=== PATIENT | male | born 1945 | race Caucasian/White ===

== ENCOUNTER → 2018-01-22 | Outpatient (CLI) | payer MEDICARE ==
[2018-01-22 09:24] LABS: HGB 14.2 gm/dL (13.0-17.5); MCH 30.5 pg (25.0-35.0); MCHC 32.2 g/dL (31.0-37.0); MCV 94.6 fL (80.0-100.0); Mean Platelet Volume 6.7; Platelet Count 221 k/uL (150-450); RBC 4.65 m/uL (4.30-5.90); RDW 13.2 % (11.5-15.5); WBC 7.3 k/uL (3.8-10.6)
[2018-01-22 10:02] LABS: Anion Gap 6 mmol/L; Blood Urea Nitrogen 14 mg/dL (9-20); Carbon Dioxide 26 mmol/L (22-30); Chloride 107 mmol/L (98-107); Potassium 4.4 mmol/L (3.5-5.1); Sodium 139 mmol/L (137-145)
== END | disposition home or self-care (01) ==
LOC: LABPAT 08:42
PROVIDERS: ATTEND Internal Medicine Cardiovascular Disease
DX: Z01.812 Encounter for preprocedural laboratory examination (principal); I35.0 Nonrheumatic aortic (valve) stenosis; I35.1 Nonrheumatic aortic (valve) insufficiency; I10 Essential (primary) hypertension
CPT/HCPCS: 36415; 80051; 82565; 84520; 85027

== ENCOUNTER 2018-01-29 06:10 | Day surgery (SDC) | payer MEDICARE ==
[2018-01-25 15:52] VITALS: BMI 25.8
[2018-01-29] MEDS ORDERED: ALPRAZolam 0.25 MG TAB PO PRN (06:19)
[2018-01-29] MEDS ORDERED: NITROGLYCERIN SL TABS 0.4 MG TAB SUBLINGUAL PRN (06:19)
[2018-01-29] MEDS ORDERED: ATORVASTATIN 80 MG TAB PO STA (06:19)
[2018-01-29] MEDS ORDERED: ASPIRIN 325 MG TAB PO STA (06:19)
[2018-01-29] MEDS ORDERED: ALPRAZolam 0.5 MG TAB PO PRN (06:19)
[2018-01-29] MEDS ORDERED: SODIUM CHLORIDE 0.9% 1,000 ML in EMPTY BAG 1 BAG IV ONE (06:19)
[2018-01-29] MEDS ORDERED: fentaNYL (PF) 50 MCG/ML 2 ML AMP ONE (07:15)
[2018-01-29] MEDS ORDERED: MIDAZOLAM 2 MG/2 ML VIAL ONE (07:16)
[2018-01-29] MEDS ORDERED: LIDOCAINE 1% INJ 10MG/ML (20 ML MDV) ONE ×2 (07:22→08:20)
[2018-01-29] MEDS ORDERED: SODIUM CHLORIDE 0.9% 1,000 ML IV ONE (07:25)
[2018-01-29 07:32] VITALS: TEMP 98.1
[2018-01-29] MEDS ORDERED: BENZOCAINE SPRAY 1 CAN MUCOUS MEM ONE (07:33)
[2018-01-29] MEDS ORDERED: MIDAZOLAM 2 MG/2 ML VIAL IVP ONE ×2 (07:44→07:45)
[2018-01-29] MEDS ORDERED: fentaNYL (PF) 50 MCG/ML 2 ML AMP IVP ONE (07:44)
[2018-01-29 07:58] VITALS: PULSE 56
--- NOTE | 2018-01-29 08:06 | P.PCN ---
Date of Procedure: 01/29/18 Preoperative Diagnosis: Severe aortic stenosis Postoperative Diagnosis: Moderate to severe aortic stenosis and moderate aortic regurgitation Procedure(s) Performed: ESTELLA Description of Procedure: INDICATION: Procedure is being done to assess the severity of aortic stenosis CONSENT:. Informed consent was obtained from the patient and family PROCEDURE:. Patient was brought to the lab in a fasting state. He was prepped and draped in the usual fashion. The throat was sprayed with Cetacaine. He'll lubricated Omni probe was introduced into the oropharynx and advanced into the esophagus and also stomach. Multiple views were obtained. Patient tolerated the procedure well. Color, pulsed wave and Continuous Doppler were performed FINDINGS:. The aortic valve is heavily calcified with restricted opening excursion. By planimetry valve area about 1.2 cm was obtained. There is also moderate aortic regurgitation which is eccentric. There is mild mitral regurgitation. Left ventricle size is normal with preserved LV function. Left atrial appendage is free of any clot. The interatrial septum is intact without any shunt. There is prominent distraction valve. Contrast saline bubble injection did not reveal any crossing of bubbles across the interatrial septum. There is moderate plaque in the aorta. A peak gradient of 60 with a mean of 37 was obtained from IMPRESSION: #1. Moderate to severe aortic stenosis. #2. Moderate aortic regurgitation which is eccentric #3. No PFO #4. No clot in the left atrial appendage PLAN: Proceed with a right and left heart catheterization
[2018-01-29] MEDS ORDERED: LIDOCAINE 1% INJ 10MG/ML (20 ML MDV) SQ ONE ×2 (08:17)
[2018-01-29 08:36] LABS: O2 Sat Blood Gas 67.2 %
[2018-01-29 08:38] LABS: O2 Sat Blood Gas 67.9 %
[2018-01-29 08:40] LABS: O2 Sat Blood Gas 95.5 %
[2018-01-29] MEDS ORDERED: IV FLUID CONTINUATION 1,000 ML IV ONE (08:59)
[2018-01-29] MEDS ORDERED: IOPAMIDOL-370 125ML BTL INJ ONE (09:04)
[2018-01-29] MEDS ORDERED: RX INFO: IV CONTRAST WAS GIVEN 1 EACH MISC MISCELLANE PRN (09:14)
[2018-01-29] MEDS ORDERED: SODIUM CHLORIDE 0.9% 1,000 ML IV SCH (09:15)
--- NOTE | 2018-01-29 13:24 | P.CARDCATH ---
Date of Procedure: 01/29/18 Preoperative Diagnosis: Severe aortic stenosis Postoperative Diagnosis: Aortic stenosis, diffuse coronary artery disease and normal pulmonic hemodynamics. Procedure(s) Performed: Left heart catheterization and also right heart catheterization without left ventriculography Description of Procedure: HISTORY: This is a 73-year-old gentleman with history of hypertension was found to have evidence of severe aortic stenosis by echocardiogram moderate aortic regurgitation. Patient is advised to have a cardiac catheterization for definitive diagnosis. A ESTELLA examination is consistent with moderate to severe aortic stenosis and moderate aortic regurgitation. CONSENT:I have discussed the risks, benefits and alternative therapies for the above-mentioned procedure and for both sedation/analgesia as well as necessary blood product administration, if indicated, as they pertain to this patient. The patient has indicated understanding and acceptance of the risks and procedures discussed. PROCEDURE: RIGHT HEART CATHETERIZATION: Right heart catheterization performed from right groin area. The right groin is infiltrated with lidocaine. Right femoral vein was entered using Seldinger technique. Using a Fleischmanns-Mae catheter, right heart catheterization performed. Patient tolerated the procedure well. Manual compression was applied at the end of the procedure for hemostasis. LEFT HEART CATHETERIZATION: Left heart catheterization was performed on the right groin. Patient was brought to the lab in a fasting state. Patient was given some IV sedation. The right groin is infiltrated with lidocaine and right femoral artery was entered using Seldinger technique. A 6-Citizen Of [place] catheter was left in place and selective coronary arteriography and left ventriculography was performed. Patient tolerated the procedure well. Manual compression was applied for hemostasis. No immediate complications were noted and patient was transferred to [facility] in a stable condition Conscious Sedation: No additional sedation was given during the procedure. Patient received Versed and fentanyl for ESTELLA earlier. Fentanyl [] g Duration 47minutes HEMODYNAMICS: Right atrial pressure is 3-4. The right ventricular pressure is 19 /3-4. Pulmonary artery pressure is 20/4/11 and pulmonary wedge pressure is 9 /8/5. The aortic pressure is 120/60. The aortic valve could not be crossed. The cardiac output by thermodilution method is 4.9 with index of 2.46. The by Juan method. It is 4.62 with index of 2.31. SELECTIVE CORONARY ARTERIOGRAPHY: LEFT MAIN: Is normal length with mild distal disease. THE LEFT ANTERIOR DESCENDING CORONARY ARTERY: This is a moderate caliber vessel with diffuse disease in the midportion with areas of 50-60% followed by an area of 70% stenosis. It gives rise to small diagonal and septal branches. THE LEFT CIRCUMFLEX AND IS CORONARY ARTERY: This is a codominant vessel giving rise to good-sized OM branch. There is also mild diffuse disease involving the proximal and mid portions with about 40-50% stenosis of the OM branch. THE RIGHT CORONARY ARTERY: This is a codominant vessel and moderate in caliber with diffuse disease. The PLV branch has about 70-80% stenosis. LEFT VENTRICULOGRAPHY: Not performed FINAL IMPRESSION: #1. Moderate aortic stenosis based on the ETSELLA examination. # 2. Moderate aortic regurgitation #3. Diffuse coronary artery disease with intermittent lesions in the OM branch and significant disease involving the mid LAD and also PLV branch of the right coronary artery. PLAN: Maximum medical therapy with risk factor modification. Symptomatic follow -up. Patient may need aortic valve replacement and revascularization. He patient becomes symptomatically. PROGNOSIS: Guarded
[2018-01-29 18:51] VITALS: RESP 20
[2018-01-29 18:53] VITALS: BP 114/60
== END 2018-01-29 17:10 | disposition home or self-care (01) ==
LOC: CATHCVL 06:10
PROVIDERS: ATTEND Internal Medicine Cardiovascular Disease
DX: I08.0 Rheumatic disorders of both mitral and aortic valves (principal); I25.10 Atherosclerotic heart disease of native coronary artery without angina pectoris; I10 Essential (primary) hypertension; F17.210 Nicotine dependence, cigarettes, uncomplicated; Z79.899 Other long term (current) drug therapy; Z88.5 Allergy status to narcotic agent
CPT/HCPCS: 93312; 93320; 93325; 93456; 85018; 82810; C1769 ×3; C1894 ×2; J2250; J2001; J3010; Q9967

== ENCOUNTER 2019-05-11 06:52 | Day surgery (SDC) | payer MEDICARE ==
[2019-05-09 12:17] VITALS: BMI 25.1
[2019-05-11 07:34] VITALS: TEMP 97.8
[2019-05-11] MEDS ORDERED: SODIUM CHLORIDE 0.9% 500 ML 500 ML IV ONE (07:35)
[2019-05-11] MEDS ORDERED: fentaNYL (PF) 50 MCG/ML 2 ML AMP ONE (07:47)
[2019-05-11] MEDS ORDERED: BENZOCAINE SPRAY 1 CAN MUCOUS MEM ONE ×2 (08:10→08:15)
[2019-05-11] MEDS ORDERED: MIDAZOLAM 2 MG/2 ML VIAL IVP ONE (08:20)
[2019-05-11] MEDS ORDERED: fentaNYL (PF) 50 MCG/ML 2 ML AMP IVP ONE (08:26)
[2019-05-11 08:32] VITALS: RESP 16
[2019-05-11] MEDS ORDERED: SODIUM CHLORIDE 0.9% 1,000 ML IV SCH (08:45)
--- NOTE | 2019-05-11 08:52 | P.TEE ---
Indications for Procedure(s): Severe stenosis by echo Date of Procedure: 05/11/19 Preoperative Diagnosis: Severe aortic stenosis and moderate to severe aortic regurgitation Postoperative Diagnosis: Mild to moderate aortic stenosis and moderate to severe aortic regurgitation Procedure(s) Performed: ESTELLA Description of Procedure(s): INDICATION: This is a 74-year-old gentleman with history of aortic stenosis and regurgitation. On recent transthoracic echocardiogram there is increasing gradient across the aortic valve. Patient is advised to have ESTELLA examination for further evaluation CONSENT:. Informed verbal consent was obtained from the patient and family PROCEDURE:. Patient was brought to the lab in a fasting state. He was prepped and draped in the usual fashion. The throat was sprayed with Cetacaine. Patient was given IV Versed 0.5 mg 2 and fentanyl 25 mg for sedation. A lubricated Omni probe was introduced into the oropharynx and was advanced into the esophagus. Multiple views were obtained both from esophagus and stomach. Color ulcer and continuous-wave Doppler studies were performed. Saline contrast bubble injections also performed. Patient tolerated the procedure well FINDINGS:. The aortic valve is calcified and tricuspid. It appears it. There is some restriction of the wall opening discussion by planimetry valve area of about 1.8 was obtained size to of mild aortic stenosis. There is eccentric moderately severe aortic regurgitation. There is mild mitral regurgitation. The left atrial appendage is free of any clot. The interatrial septum is intact. Left ventricular function is normal. A peak gradient of about 67 with a mean of 42 was obtained across the aortic valve. There is mild plaque in the aorta IMPRESSION: #1. By planimetry valve stenosis appears to be at most mild to moderate. The pressure gradient is high but it could be falsely high because of concomitant aortic regurgitation. #2. Mild mitral regurgitation. #3. No clot in the left atrial appendage. #4. Left ventricle function is preserved. #5. There is no PFO #6. Mild plaque in the aorta PLAN:. Continuation of maximal medical therapy. Follow up with serial echoes.
--- NOTE | 2019-05-11 10:45 | XR ---
Right elbow HISTORY: Trauma and pain 3 views of the right elbow Bone mineralization, joint spaces and alignment are maintained. There is a crescentic calcification p resent within the soft tissues posterior to the distal right humerus is well-corticated. Soft tissue swelling is noted the level of the olecranon, there is a small punctate metallic density within the s oft tissues. No definite joint effusion. IMPRESSION: No acute fracture or dislocation. Soft tissue swelling, correlate for possible foreign olivia dy. Indeterminate calcification posterior aspect of the distal right upper extremity may be chronic. Correlate to exclude triceps dysfunction, possible avulsion injury
[2019-05-11 11:56] VITALS: BP 117/56; PULSE 58
== END 2019-05-11 10:05 | disposition home or self-care (01) ==
LOC: CATHCVL 06:52
PROVIDERS: ATTEND Internal Medicine Cardiovascular Disease
DX: I08.0 Rheumatic disorders of both mitral and aortic valves (principal); I10 Essential (primary) hypertension; Z72.0 Tobacco use; Z79.899 Other long term (current) drug therapy; Z88.5 Allergy status to narcotic agent
CPT/HCPCS: 93312; 93320; 93325; 73080; J2250; J3010

== ENCOUNTER 2020-11-27 08:54 | Day surgery (SDC) | payer MEDICARE ==
[2020-11-22 12:03] VITALS: BMI 26.4
[~2020-11-27 08:54] MED LIST: ALPRAZolam 0.25 MG TAB PO PRN; ALPRAZolam 0.5 MG TAB PO PRN; ASPIRIN 325 MG TAB PO STA; HEPARIN SODIUM,PORCINE 10,000 UNIT in SODIUM CHLORIDE 0.9% 1,000 ML IRRIGATION PRN; HEPARIN SODIUM,PORCINE 2,500 UNIT in SODIUM CHLORIDE 0.9% 250 ML IRRIGATION PRN; NITROGLYCERIN SL TABS 0.4 MG TAB SUBLINGUAL PRN; SODIUM CHLORIDE 0.9% 1,000 ML in EMPTY BAG 1 BAG IV ONE
[2020-11-27 09:31] LABS: Basophils % (A) 0 %; Eosinophils # (A) 0.2 k/uL (0-0.7); Eosinophils % (A) 2 %; HGB 14.7 gm/dL (13.0-17.5); Lymphocytes # (A) 1.3 k/uL (1.0-4.8); Lymphocytes % (A) 17 %; MCH 31.4 pg (25.0-35.0); MCHC 33.5 g/dL (31.0-37.0); MCV 93.9 fL (80.0-100.0); Mean Platelet Volume 7.1; Monocytes # (A) 0.6 k/uL (0-1.0); Monocytes % (A) 7 %; Neutrophils # (A) 5.5 k/uL (1.3-7.7); Neutrophils % (A) 72 %; Platelet Count 220 k/uL (150-450); RBC 4.68 m/uL (4.30-5.90); RDW 13.1 % (11.5-15.5); WBC 7.6 k/uL (3.8-10.6)
[2020-11-27 09:42] LABS: African American GFR (CKD) >90 (>60 ml/min/1.73 sqM); Anion Gap 7 mmol/L; Blood Urea Nitrogen 15 mg/dL (9-20); Calcium 9.3 mg/dL (8.4-10.2); Carbon Dioxide 26 mmol/L (22-30); Chloride 105 mmol/L (98-107); Glucose 100 mg/dL (74-99); Non-African American GFR(CKD) 81 (>60 ml/min/1.73 sqM); Potassium 4.5 mmol/L (3.5-5.1); Sodium 138 mmol/L (137-145)
[2020-11-27] MEDS ORDERED: fentaNYL (PF) 50 MCG/ML 2 ML AMP ONE (11:04)
[2020-11-27] MEDS ORDERED: IV FLUID CONTINUATION 1,000 ML IV ONE (11:10)
[2020-11-27] MEDS ORDERED: MIDAZOLAM 2 MG/2 ML VIAL IV ONE (11:30)
[2020-11-27] MEDS ORDERED: BENZOCAINE SPRAY 1 CAN MUCOUS MEM ONE (11:30)
[2020-11-27] MEDS ORDERED: fentaNYL (PF) 50 MCG/ML 2 ML AMP IV ONE (11:30)
[2020-11-27] MEDS ORDERED: LIDOCAINE 1% INJ 10MG/ML (20 ML MDV) SQ ONE (12:19)
[2020-11-27] MEDS ORDERED: IOPAMIDOL-370 125ML BTL INJ ONE ×2 (12:50)
[2020-11-27 12:51] LABS: O2 Sat Blood Gas 97.2 %
[2020-11-27 12:53] LABS: O2 Sat Blood Gas 70.9 %
[2020-11-27 12:55] LABS: O2 Sat Blood Gas 70.3 %
[2020-11-27] MEDS ORDERED: RX INFO: IV CONTRAST WAS GIVEN 1 EACH MISC MISCELLANE PRN (13:12)
[2020-11-27] MEDS ORDERED: SODIUM CHLORIDE 0.9% 1,000 ML IV SCH (13:15)
[2020-11-27 16:02] VITALS: RESP 18
[2020-11-27 18:28] VITALS: BP 131/70; PULSE 78; TEMP 97.9
--- NOTE | 2020-11-29 07:59 | P.TEE ---
Indications for Procedure(s): Assessment of aortic stenosis and regurgitation Date of Procedure: 11/29/20 Preoperative Diagnosis: Severe aortic stenosis and regurgitation Postoperative Diagnosis: Severe aortic stenosis and moderate to severe aortic regurgitation Procedure(s) Performed: ESTELLA Description of Procedure(s): INDICATION: This is a 75-year-old gentleman with history of aortic stenosis and regurgitation. Recent transthoracic echocardiogram showed progression of the stenosis. He is advised to have a ESTELLA examination for further evaluation CONSENT:. Informed verbal consent was obtained from the patient PROCEDURE: Patient was brought to the lab in a fasting state. He was prepped and draped in the usual fashion. This throat was sprayed with Cetacaine. Patient was given 2 mg Versed and 50 g of fentanyl for sedation. A lubricated Omni probe was introduced into the oropharynx and was advanced into the esophagus. Multiple views were obtained both from esophagus and stomach. Saline contrast probably injections also performed. Patient tolerated the procedure well FINDINGS:. The aortic valve showed extensive calcification with restricted opening excursion. Difficult to planimetry the area. By planimetry the opening area appears to be 0.6 2.7 cm. There is a moderate to severe eccentric aortic regurgitation. The mitral valve functioning normally with mild central regurgitation. The left atrial appendage is free of any clot. The interatrial septum appeared to be intact the restaurant. Left ventricle function appear to be preserved. There is left atrial enlargement by echo showed moderate to severe plaque. A peak gradient of 95 with a mean of 54 was obtained across the aortic valve again consistent with severe aortic stenosis IMPRESSION: #1. Severe aortic stenosis. 2. Moderate to severe eccentric aortic regurgitation #3. Mild mitral regurgitation. #4. Biatrial enlargement. #5. Preserved LV function. #6. No PFO #7. No clot in the left atrial appendage. #5. Moderate to severe plaque in the aorta PLAN: Proceed with cardiac catheterization. Consider aortic valve replacement
--- NOTE | 2020-11-29 08:05 | P.CARDCATH ---
Date of Procedure: 11/27/20 Preoperative Diagnosis: Severe aortic stenosis and regurgitation. Rule out coronary artery disease Postoperative Diagnosis: Diffuse coronary artery disease, multivessel Procedure(s) Performed: Left heart catheterization without left ventriculography Description of Procedure: HISTORY: This is a 75-year-old gentleman with history of severe aortic stenosis and regurgitation being evaluated to rule out any concomitant ischemic heart disease. CONSENT:I have discussed the risks, benefits and alternative therapies for the above-mentioned procedure and for both sedation/analgesia as well as necessary blood product administration, if indicated, as they pertain to this patient. The patient has indicated understanding and acceptance of the risks and procedures discussed. PROCEDURE: Patient was brought to the lab in a fasting state. Patient was given some IV sedation. The right groin is infiltrated with lidocaine and right femoral artery was entered using Seldinger technique. Because of calcification and excessive scar tissue, multiple dilators were used before advancing the catheter A 6-[place] catheter was left in place and selective coronary arteriography was performed. Aortic root injection wasn't attempted, but because of technical difficulties could not be completed. Patient tolerated the procedure well. Manual compression was applied for hemostasis. No immediate complications were noted and patient was transferred to [facility] in a stable condition Conscious Sedation: Versed 0mg Fentanyl 0 g Duration 40 minutes HEMODYNAMICS: The aortic pressure was about 130/70. Left ventricle end- diastolic pressure was not pressure SELECTIVE CORONARY ARTERIOGRAPHY: LEFT MAIN: Normal length and free of any occlusive disease THE LEFT ANTERIOR DESCENDING CORONARY ARTERY:. This is a moderate caliber vessel giving rise to several diagonal branches and septal branch. There is calcification and a diffuse plaque involving the LAD without any significant obstructive disease. There is about 60-70%. He'll stenosis involving the mid LAD THE LEFT CIRCUMFLEX AND IS CORONARY ARTERY:. This is a good caliber vessel, again showing about 60% stenosis in the proximal portion. Use ice to good-sized OM branch and PLV branch THE RIGHT CORONARY ARTERY:. This is a good caliber vessel and dominant with a diffuse plaque. There is about 60% stenosis in the distal portion and about 70-80% stenosis involving the PLV branch LEFT VENTRICULOGRAPHY: Not performed FINAL IMPRESSION:. Diffuse coronary artery disease with moderate disease involving the mid LAD and also proximal circumflex, moderate disease involving the distal RCA with critical lesion involving the PLV branch. Severe aortic stenosis by ESTELLA examination PLAN:. Aortic valve replacement. Maximum medical therapy for coronary artery disease PROGNOSIS: Guarded
== END 2020-11-27 21:20 | disposition home or self-care (01) ==
LOC: CATHCVL 08:54 → 6NMEDSUR 14:57 → CATHCVL 21:20
PROVIDERS: ATTEND Internal Medicine Cardiovascular Disease
DX: I35.0 Nonrheumatic aortic (valve) stenosis (principal); I25.10 Atherosclerotic heart disease of native coronary artery without angina pectoris; I25.84 Coronary atherosclerosis due to calcified coronary lesion; Z20.822 Contact with and (suspected) exposure to COVID-19; I10 Essential (primary) hypertension; F17.210 Nicotine dependence, cigarettes, uncomplicated; Z79.899 Other long term (current) drug therapy
CPT/HCPCS: 93312; 93320; 93325; 93454; 80048; 85018; 82810; 85025; 87635; C1894 ×2; C1769 ×2; J2250; J2001; J3010; Q9967; 93456

== ENCOUNTER → 2020-12-20 | Outpatient (CLI) | payer MEDICARE ==
[2020-12-20 08:38] LABS: Basophils % (A) 0 %; Eosinophils # (A) 0.2 k/uL (0-0.7); Eosinophils % (A) 3 %; HCT 41.9 % (39.0-53.0); Lymphocytes # (A) 1.2 k/uL (1.0-4.8); Lymphocytes % (A) 19 %; MCH 31.9 pg (25.0-35.0); MCHC 33.4 g/dL (31.0-37.0); MCV 95.5 fL (80.0-100.0); Mean Platelet Volume 7.1; Monocytes # (A) 0.4 k/uL (0-1.0); Monocytes % (A) 7 %; Neutrophils # (A) 4.7 k/uL (1.3-7.7); Neutrophils % (A) 71 %; Platelet Count 209 k/uL (150-450); RBC 4.39 m/uL (4.30-5.90); RDW 13.2 % (11.5-15.5); WBC 6.7 k/uL (3.8-10.6)
[2020-12-20 08:51] LABS: ALT 11 U/L (4-49); AST 22 U/L (17-59); African American GFR (CKD) >90 (>60 ml/min/1.73 sqM); Albumin 3.9 g/dL (3.5-5.0); Alkaline Phosphatase 69 U/L (38-126); Anion Gap 5 mmol/L; Bilirubin,Unconjugated 1.2 mg/dL (0.0-1.1); Blood Urea Nitrogen 13 mg/dL (9-20); Calcium 9.2 mg/dL (8.4-10.2); Carbon Dioxide 30 mmol/L (22-30); Chloride 103 mmol/L (98-107); Glucose 100 mg/dL (74-99); Non-African American GFR(CKD) 82 (>60 ml/min/1.73 sqM); Potassium 4.8 mmol/L (3.5-5.1); Sodium 138 mmol/L (137-145); Total Bilirubin 1.1 mg/dL (0.2-1.3); Total Protein 6.6 g/dL (6.3-8.2)
[2020-12-20 09:06] LABS: Appearance,Urine Clear (Clear); Bilirubin,Urine Negative (Negative); Blood,Urine Negative (Negative); Color,Urine Light Yellow; Glucose,Urine (UA) Negative (Negative); Ketones,Urine Negative (Negative); Leukocyte Esterase,Urine Negative (Negative); Nitrite,Urine Negative (Negative); Protein,Urine Negative (Negative); Specific Gravity,Urine 1.009 (1.001-1.035); Urobilinogen,Urine <2.0 mg/dL (<2.0)
[2020-12-20 09:07] LABS: Partial Thromboplastin Time 24.3 sec (22.0-30.0); Prothrombin Time 10.4 sec (9.0-12.0)
[2020-12-20 09:54] LABS: Magnesium 2.2 mg/dL (1.6-2.3)
[2020-12-20 17:14] LABS: Chol/HDL Ratio 3.62; Cholesterol 163 mg/dL (0-200); LDL Cholesterol,Calculated 106.4 mg/dL (0.0-131.0)
== END | disposition home or self-care (01) ==
LOC: LABWHC1 07:32
PROVIDERS: ATTEND Thoracic Surgery (Cardiothoracic Vascular Surgery)
DX: Z01.812 Encounter for preprocedural laboratory examination (principal); E87.8 Other disorders of electrolyte and fluid balance, not elsewhere classified; R58 Hemorrhage, not elsewhere classified; E07.9 Disorder of thyroid, unspecified; R35.0 Frequency of micturition; I35.0 Nonrheumatic aortic (valve) stenosis; E11.9 Type 2 diabetes mellitus without complications; N28.9 Disorder of kidney and ureter, unspecified; D75.9 Disease of blood and blood-forming organs, unspecified; E78.5 Hyperlipidemia, unspecified; Z79.899 Other long term (current) drug therapy
CPT/HCPCS: 36415; 80053; 80061; 81003; 82248; 83036; 83735; 83880; 84443; 85025; 85610; 85730; 87086

== ENCOUNTER → 2020-12-27 | Outpatient (CLI) | payer MEDICARE ==
--- NOTE | 2020-12-27 13:08 | US ---
EXAMINATION TYPE: US carotid duplex BILAT DATE OF EXAM: 12/27/2020 COMPARISON: NONE CLINICAL HISTORY: R55 SYNCOPE. Syncope EXAM MEASUREMENTS: RIGHT: Peak Systolic Velocity (PSV) cm/sec ----- Right CCA: 64.8 ----- Right ICA: 67.7 ----- Right ECA: 86.6 ICA/CCA ratio: 1.0 RIGHT: End Diastole cm/sec ----- Right CCA: 0 ----- Right ICA: 14.0 ----- Right ECA: 0 LEFT: Peak Systolic Velocity (PSV) cm/sec ----- Left CCA: 75.0 ----- Left ICA: 93.9 ----- Left ECA: 60 ICA/CCA ratio: 1.3 LEFT: End Diastole cm/sec ----- Left CCA: 0 ----- Left ICA: 27 ----- Left ECA: 0 VERTEBRALS (direction of flow): Right Vertebral: Antegrade Left Vertebral: Antegrade Rhythm: Arrhythmia Mild bilateral atherosclerotic plaque/intimal thickening at the common carotid artery bifurcations. IMPRESSION: 1. No hemodynamically significant stenosis of the bilateral internal carotid arteries. Less than 50% stenosis bilaterally. 2. Mild bilateral atherosclerotic plaque/intimal thickening at the common carotid artery bifurcations . Criteria for Assigning % of Stenosis / Diameter reduction (Estimation based on the indirect measurements of the internal carotid artery velocities (ICA PSV). 1. Normal (no stenosis)=ICA PSV < 125 cm/s: ratio < 2.0: ICA EDV<40 cm/s. 2. Less than 50% stenosis=ICA PSV < 125 cm/s: ratio < 2.0: ICA EDV<40 cm/s. 3. 50 to 69% stenosis=ICA PSV of 125 to 230 cm/s: ration 2.0 ? 4.0: ICA EDV 40-100 cm/s. 4. Greater than 70% stenosis to near occlusion= ICA PSV > 230 cm/s: ratio > 4.0: ICA EDV > 100 cm/s. 5. Near occlusion= ICA PSV velocities may be low or undetectable: variable ratio and ICA EDV. 6. Total occlusion=unable to detect flow.
--- NOTE | 2020-12-27 20:16 | CT ---
EXAMINATION TYPE: CT TAVR Planning DATE OF EXAM: 12/27/2020 HISTORY: 75-year-old male I 3 5.[address] DLP: 1948.6 mGycm Automated Exposure Control for Dose Reduction was Utilized. CONTRAST: CT scan of the chest, abdomen and pelvis is performed with IV Contrast, patient injected with 125 mL of Isovue 370. COMPARISON: None TECHNIQUE: Helical imaging obtained through the chest, abdomen and pelvis during arterial phase chad adrien administration of radiographic contrast intravenously. FINDINGS: See report from [employer] regarding preprocedural planning CHEST: Lower Neck and Thyroid: No significant findings Lungs: Minimal upper lung emphysematous change. Mild diffuse bronchial wall thickening. Benign 7 mm c alcified granuloma peripheral left base. Central Airway: No significant findings Pleura: No significant findings Pulmonary Arteries: Mildly enlarged caliber measuring up to 2.7 cm may reflect underlying pulmonary a rterial hypertension. Heart and Pericardium: No significant findings Aorta: Bovine configuration. Lymph Nodes: Some small calcified subcarinal left hilar lymph nodes suggest prior granulomatous disea se. Mediastinum & Esophagus: Moderate-sized hiatal hernia in the lower chest. ABDOMEN/PELVIS: Please note arterial phase of the imaging limits detailed evaluation of the solid abdominal organs. Liver: 2.0 cm left hepatic dome cyst. Spleen: Small calcified granulomas. Kidneys: No significant findings Adrenal Glands: Mild diffuse low-density thickening left adrenal gland without discrete nodularity. Pancreas: No significant findings Gallbladder: A couple faceted gallstones measuring up to 1.1 cm noted. Bowel and Mesentery: Left-sided clonic diverticulosis. No evidence for acute diverticulitis. Lymph Nodes: No significant findings Urinary Bladder: Circumferential wall thickening. 5.6 cm narrow neck diverticulum from the right para median posterior wall. Posterior dome trabeculations and smaller 1.4 cm diverticulum. Pelvic Organs: Prostate gland is enlarged measuring up to 6.5 cm AP and 5.2 cm wide. Other: Mild to moderate atherosclerotic calcification and plaque in the abdominal aorta. 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 Tortuous common and external iliac arteries. Other Lines/Tubes/Devices/Hardware: None Bones: Mild degenerative change at the hips. Degenerative change at the bilateral SI joints. Loss of the subacromial space on both sides suggesting chronic full-thickness rotator cuff tears. Secondary r otator cuff arthropathy. Moderate degenerative disc disease mid to lower thoracic spine and lumbar sp ine. Hypertrophic facet arthropathy mid to lower lumbar spine. IMPRESSION: 1. Tortuous common and external iliac arteries incidentally noted. 2. Prostatomegaly at 6.5 cm. Trabeculated and mildly thickened bladder wall suggests BPH and chronic bladder outlet obstruction. Of note, there is a large 5.6 cm narrowneck diverticulum from the posteri or bladder wall. 3. Incidental: Pulmonary arterial hypertension, minimal emphysema, evidence of prior granulomatous di sease, moderate sized hiatal hernia, cholelithiasis, and left-sided colonic diverticulosis.
== END | disposition home or self-care (01) ==
LOC: LABWHC1 09:34
PROVIDERS: ATTEND Thoracic Surgery (Cardiothoracic Vascular Surgery)
DX: Z01.812 Encounter for preprocedural laboratory examination (principal); I49.9 Cardiac arrhythmia, unspecified; I65.23 Occlusion and stenosis of bilateral carotid arteries; N40.0 Benign prostatic hyperplasia without lower urinary tract symptoms; I35.1 Nonrheumatic aortic (valve) insufficiency; R94.31 Abnormal electrocardiogram [ECG] [EKG]; R55 Syncope and collapse
CPT/HCPCS: 94150; 93880; 71275; 74174; 93005; 36415; Q9967

== ENCOUNTER 2021-01-09 07:07 | Inpatient (IN) | payer MEDICARE ==
[~2021-01-09 07:07] MED LIST changes: -ALPRAZolam 0.25 MG TAB PO PRN; -ALPRAZolam 0.5 MG TAB PO PRN; +ASPIRIN 325 MG TAB PO ONE; -ASPIRIN 325 MG TAB PO STA; +ATORVASTATIN 10 MG TAB PO ONE; +CARDIOPLEGIC SOLN (K+ 16 MEQ/L 1,000 ML with SODIUM BICARB (1 MEQ/ML) 20 ML, LIDOCAINE ... PERFUSION PRN; +CLEVIDIPINE BUTYRATE 25 MG in EMPTY BAG 1 BAG IV PRN; +CLOPIDOGREL 75 MG TAB PO ONE; -HEPARIN SODIUM,PORCINE 10,000 UNIT in SODIUM CHLORIDE 0.9% 1,000 ML IRRIGATION PRN; -HEPARIN SODIUM,PORCINE 2,500 UNIT in SODIUM CHLORIDE 0.9% 250 ML IRRIGATION PRN; +INSULIN REGULAR 100 UNIT in SODIUM CHLORIDE 0.9% 100 ML IV PRN; +METOPROLOL TARTRATE 25 MG TAB PO ONE; +MUPIROCIN 2% OINT 22 GM TUBE NASAL SCH; -NITROGLYCERIN SL TABS 0.4 MG TAB SUBLINGUAL PRN; +NITROGLYCERIN-D5W PMX 25 MG/250 ML BTL IV PRN; +PROTAMINE SULFATE 250 MG in EMPTY BAG 1 BAG IV PRN; -SODIUM CHLORIDE 0.9% 1,000 ML in EMPTY BAG 1 BAG IV ONE; +SODIUM CHLORIDE 0.9% 500 ML 500 ML INTRAARTER ONE; +SODIUM CHLORIDE 0.9% 500 ML 500 ML IV ONE; +TRANEXAMIC ACID 2,000 MG in SODIUM CHLORIDE 0.9% 80 ML IV PRN
[2021-01-09] MEDS ORDERED: SODIUM CHLORIDE 0.9% 1,000 ML IV ONE (07:19)
[2021-01-09 07:46] LABS: Glucose,Whole Blood 97 mg/dL (75-99)
[2021-01-09 07:56] LABS: Basophils % (A) 0 %; Eosinophils # (A) 0.2 k/uL (0-0.7); Eosinophils % (A) 2 %; HCT 40.8 % (39.0-53.0); HGB 14.1 gm/dL (13.0-17.5); Lymphocytes # (A) 1.1 k/uL (1.0-4.8); Lymphocytes % (A) 16 %; MCH 32.4 pg (25.0-35.0); MCHC 34.5 g/dL (31.0-37.0); MCV 94.1 fL (80.0-100.0); Monocytes # (A) 0.4 k/uL (0-1.0); Monocytes % (A) 6 %; Neutrophils # (A) 4.9 k/uL (1.3-7.7); Neutrophils % (A) 74 %; Platelet Count 199 k/uL (150-450); RBC 4.33 m/uL (4.30-5.90); RDW 13.1 % (11.5-15.5); WBC 6.7 k/uL (3.8-10.6)
--- NOTE | 2021-01-09 09:46 | P.ANPRN ---
Procedure Note - Anesthesia - Invasive Line Right Central Line Time Out Performed: Yes ([id number]) Date of Procedure: 01/09/21 Time of Procedure: 09:22 Location of Patient: EP Preparation: Sterile Prep, Sterile Dressing Arterial Line Location: Radial (l) Ultrasound Used: Yes Purpose - Visualization and Identification of Vasculature: Yes Needle Guage: 18g touhy Image Stored and Saved: Yes Narrative: Central line placement per sterile protocol utilized. + local +angio +cvp +jwire +uneventful dilation and introduction right IJ TLC
[2021-01-09] MEDS ORDERED: SUCCINYLCHOLINE CHLORIDE 100 MG/5 ML SYR IV ONE (10:34)
[2021-01-09] MEDS ORDERED: HEPARIN SODIUM,PORCINE 10,000 UNIT/ML 1 ML VIAL ONE (10:34)
[2021-01-09] MEDS ORDERED: PROTAMINE SULFATE 10 MG/ML 5 ML VIAL IV ONE (10:34)
[2021-01-09] MEDS ORDERED: GLYCOPYRROLATE 0.2 MG/ML 2 ML VIAL ONE (10:34)
[2021-01-09] MEDS ORDERED: PHENYLEPHRINE-0.9% NACL SYG 1,000 MCG/10 ML SYRINGE ONE (10:34)
[2021-01-09] MEDS ORDERED: fentaNYL (PF) 50 MCG/ML 2 ML AMP ONE (10:34)
[2021-01-09] MEDS ORDERED: LIDOCAINE 1% INJ 10MG/ML (20 ML MDV) ONE (10:34)
[2021-01-09] MEDS ORDERED: ePHEDrine SULFATE/0.9% NACL/PF 50 MG/5 ML SYRINGE IV ONE (10:34)
[2021-01-09] MEDS ORDERED: ROCURONIUM 10 MG/ML (5 ML VIAL) IV ONE (10:34)
[2021-01-09] MEDS ORDERED: MIDAZOLAM 2 MG/2 ML VIAL ONE (10:34)
[2021-01-09] MEDS ORDERED: PROPOFOL 10 MG/ML 20 ML VIAL IV ONE (10:34)
[2021-01-09] MEDS ORDERED: NEOSTIGMINE 1 MG/ML 10 ML VIAL ONE (10:34)
[2021-01-09] MEDS ORDERED: IOPAMIDOL-370 100ML BTL INJ ONE (12:07)
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
[2021-01-09] MEDS ORDERED: ACETAMINOPHEN TAB 325 MG TAB PO PRN (12:45)
[2021-01-09] MEDS ORDERED: IPRATROPIUM-ALBUTEROL 3 ML NEB INHALATION PRN (12:45)
[2021-01-09] MEDS ORDERED: ONDANSETRON 4 MG/2 ML VIAL IVP PRN (12:45)
[2021-01-09] MEDS ORDERED: NALOXONE 0.4 MG/ML 1 ML VIAL IV PRN (12:47)
--- NOTE | 2021-01-09 12:55 | P.OP ---
Date of Procedure: 01/09/21 Preoperative Diagnosis: Senile calcific aortic stenosis Postoperative Diagnosis: Same Procedure(s) Performed: Transcatheter aortic valve replacement with 34 mm core valve evolute pro plus the right percutaneous transfemoral approach Implants: 34 mm core valve evolute pro plus Anesthesia: GETA Surgeon: Bharath Almeida Instructional Technologist #1: Deric Doll (cloth checker) Instructional Technologist #2: Chago Roy Estimated Blood Loss (ml): 10 IV fluids (ml): 1,000 Urine output (ml): 200 Pathology: none sent Condition: stable Disposition: ICU Indications for Procedure: 75-year-old male with known history of COPD and closed head injury presents with 6 month history of worsening dyspnea and shortness of breath. This is significantly impacted his quality of life. Echocardiography demonstrates severe aortic valvular stenosis. Patient was felt to represent intermediate to high risk for surgical aortic valve and was felt to be appropriate for transcatheter aortic valve. Operative Findings: Valve was seated with a depth of 2 on the right and 4 on the left. Initial deployment demonstrated evidence of significant underexpansion with persistent gradient and some degree of aortic insufficiency. Post dilatation yielded a much lower gradient, better diastolic separation and more rounded appearance. No significant leak was noted on the final echocardiographic evaluation. Description of Procedure: Patient was brought to the catheterization laboratory and placed supine on the table anesthetized and intubated. Anterior chest and bilateral groins were sterilely prepped and draped. Right subclavian vein was punctured with an 18- gauge needle and guidewire threaded into the right atrium. Introducer and dilator were placed and through this introducer a screw-in ventricular lead was manipulated into the apex of the right ventricle. Pacing thresholds were below 1 V. Introducer sheath was removed and the lead was secured with 2-0 silk suture ligatures. Bilateral femoral access was obtained under ultrasound guidance by Dr. Roy. On the left a 6-Azerbaijani Vini catheter was placed into the descending thoracic aorta. On the right 6-Azerbaijani catheter was placed and then 2 Perclose devices were deployed. An 8-Azerbaijani sheath was placed. Stiff guidewire was placed on the right and the arteriotomy was dilated with 12 and 14-Azerbaijani dilators and then a 18-Azerbaijani sheath was placed on the right. On the left a pigtail catheter was advanced into the noncoronary sinus of Valsalva and an aortic root injection was performed. We then crossed the valve from the right side and advanced a pigtail catheter into the apex of the left ventricle. Transit catheter gradients were then measured. The patient had been systemically heparinized prior to placing the large sheath. A Lunderquist wire was now advanced into the apex of the left ventricle and predilatation was performed with a 22 true balloon under rapid ventricular pacing. 14-Azerbaijani sheath was now exchanged for 34 core valve delivery system. The core valve had been loaded on the back table and checked under fluoroscopy. It was advanced around the arch and across the aortic valve. Deployed under rapid ventricular pacing with deployment levels of 2 of the right and 4 on the left. Initial echocardiogram showed some degree of regurgitation and there appeared to be under deployment of the frame. Core valve delivery system was removed and exchanged for the 14-Azerbaijani sheath. Pigtail catheter was advanced into the left ventricle and transvalvular gradients were obtained. Although there was a mild gradient still present the diastolic separation was poor. It was decided to post-dilate the valve. Postdilatation was performed with a 28 compliant balloon under rapid ventricular pacing. Following this the aortic insufficiency had completely resolved. Gradient was significantly lower. Decided to accept this final result and heparin was reversed with protamine. Sheath was removed and the 2 Perclose devices deployed with good hemostasis. Angiography demonstrated no evidence of leak or narrowing. The left sheath was removed and hemostasis obtained with direct pressure. Heparin was reversed with protamine prior to removing the sheaths. Patient was extubated in the room and transferred to the ICU in stable condition. Patient did require temporary pacing briefly following initial placement of the Lunderquist wire in the ventricle. Completion of the case patient had a stable rhythm but was still having intermittent periods of heart block. Temporary pacer was left on backup.
[2021-01-09 12:56] LABS: Glucose,Whole Blood 114 mg/dL (75-99)
--- NOTE | 2021-01-09 13:24 | XR ---
EXAMINATION TYPE: XR chest 1V portable DATE OF EXAM: 01/09/2021 CLINICAL HISTORY: Post Operative Cardiac Surgery. TECHNIQUE: Supine frontal view of the chest COMPARISON: None FINDINGS: Aortic valvular stent graft. [id number] hiatal hernia. The cardiomediastinal silhouette is within normal limits for size. P ulmonary vasculature is normal. There is no focal air space opacity. No pleural effusion. Evaluation for pneumothorax somewhat limited by supine technique, with no sizable free air collection. Lucencie s inferior to the cardiac silhouette correspond with the course of the transverse colon on CT compari son, likely representing bowel gas. No acute displaced osseous fracture. IMPRESSION: 1. Aortic valvular stent graft. 2. No acute cardiopulmonary process. 3. Small to moderate hiatal hernia.
[2021-01-09 13:39] LABS: Basophils % (A) 0 %; Eosinophils # (A) 0.2 k/uL (0-0.7); Eosinophils % (A) 2 %; HCT 36.8 % (39.0-53.0); HGB 12.6 gm/dL (13.0-17.5); Lymphocytes # (A) 1.2 k/uL (1.0-4.8); Lymphocytes % (A) 12 %; MCH 32.4 pg (25.0-35.0); MCHC 34.4 g/dL (31.0-37.0); MCV 94.3 fL (80.0-100.0); Mean Platelet Volume 7.4; Monocytes # (A) 0.4 k/uL (0-1.0); Monocytes % (A) 5 %; Neutrophils # (A) 7.9 k/uL (1.3-7.7); Neutrophils % (A) 80 %; Platelet Count 150 k/uL (150-450); WBC 9.9 k/uL (3.8-10.6)
[2021-01-09 13:45] LABS: Ionized Calcium 4.7 mg/dL (4.5-5.3)
[2021-01-09 13:54] LABS: ALT 9 U/L (4-49); AST 23 U/L (17-59); African American GFR (CKD) >90 (>60 ml/min/1.73 sqM); Alkaline Phosphatase 60 U/L (38-126); Anion Gap 9 mmol/L; Blood Urea Nitrogen 12 mg/dL (9-20); Calcium 8.2 mg/dL (8.4-10.2); Carbon Dioxide 24 mmol/L (22-30); Chloride 104 mmol/L (98-107); Glucose 105 mg/dL (74-99); Non-African American GFR(CKD) 90 (>60 ml/min/1.73 sqM); Potassium 3.8 mmol/L (3.5-5.1); Sodium 137 mmol/L (137-145); Total Bilirubin 1.2 mg/dL (0.2-1.3); Total Protein 5.6 g/dL (6.3-8.2)
[2021-01-09 13:57] LABS: INR 1.1 (<1.2); Prothrombin Time 11.3 sec (9.0-12.0)
--- NOTE | 2021-01-09 13:59 | P.ANPRN ---
Procedure Note - Anesthesia - ESTELLA Intraop Pre Bypass ESTELLA Intraop - Anesthesia Indication: Guide TAVR procedure Date of Procedure: 01/09/21 Pre-operative Diagnosis: Severe aortic stenosis Post-operative Diagnosis: Transcatheter aortic valve implantation Surgeon: Bharath Almeida Left Ventricle: Normal LV function ejection fraction 50-55% Ejection Fraction: Normal Regional Wall Motion Abnormalities: None Left Ventricle Hypertrophy: Yes (Mild) R. Ventricle Function: Normal Aortic Valve: Severely calcified. Mean gradient 40 mmHg and peak gradient 69 mmHg. Valve area 0.9 cm. Moderate aortic regurgitation seen Anatomy: Trileaflet Aortic Stenosis: Severe Aortic Regurgitation: Moderate Mitral Stenosis: None Mitral Regurgitation: Mild Tricuspid Stenosis: None Tricuspid Regurgitation: Trace Pulmonic Stenosis: None Pulmonic Regurgitation: None R. Atrial Dilation: Yes (Mild) R. Atrial PFO: No L. Atrial Dilation: Yes (My) Aorta: Grade 1-2 atherosclerosis Aortic Dissection: No Aortic Calcification: Mild Plural Effusion: None - ESTELLA Intraop Post Bypass ESTELLA Intraop Post Bypass Procedure Performed: Transcutaneous aortic valve implantation Left Ventricle: Ejection fraction 50-55% Ejection Fraction: Normal Regional Wall Motion Abnormalities: None R. Ventricle Function: Normal Aortic Valve: Prosthetic aortic valve in situ. Appears to be well-seated. Mean gradient 8 mmHg and peak gradient of 40 mmHg. There is a tiny para valvular Regurgitation in the right coronary cusp region which appears to be not significant hemodynamically. Tricuspid: Unchanged Pulmonic: Unchanged Aortic Dissection: No
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
[2021-01-09 15:03] VITALS: BMI 25.9
[2021-01-09] MEDS: LACTATED RINGERS 1,000 ML IV SCH ×2 (17:28→20:02)
[2021-01-09] MEDS: MEMANTINE 10 MG TAB PO SCH (20:12)
[2021-01-09] MEDS: DOXAZOSIN 4 MG TAB PO SCH (20:12)
[2021-01-09] MEDS: HEPARIN SODIUM,PORCINE/PF 5,000 UNIT/0.5 ML SYRINGE SQ SCH (23:12)
[2021-01-10 04:21] LABS: Basophils % (A) 0 %; Eosinophils # (A) 0.1 k/uL (0-0.7); Eosinophils % (A) 1 %; HCT 37.8 % (39.0-53.0); HGB 12.7 gm/dL (13.0-17.5); Lymphocytes % (A) 10 %; MCH 32.1 pg (25.0-35.0); MCHC 33.6 g/dL (31.0-37.0); MCV 95.5 fL (80.0-100.0); Mean Platelet Volume 7.3; Monocytes # (A) 0.7 k/uL (0-1.0); Monocytes % (A) 7 %; Neutrophils # (A) 8.7 k/uL (1.3-7.7); Neutrophils % (A) 82 %; Platelet Count 156 k/uL (150-450); RBC 3.96 m/uL (4.30-5.90); RDW 13.3 % (11.5-15.5); WBC 10.6 k/uL (3.8-10.6)
[2021-01-10 04:39] LABS: Ionized Calcium 4.8 mg/dL (4.5-5.3)
[2021-01-10 04:49] LABS: ALT 11 U/L (4-49); AST 27 U/L (17-59); African American GFR (CKD) >90 (>60 ml/min/1.73 sqM); Albumin 3.4 g/dL (3.5-5.0); Alkaline Phosphatase 63 U/L (38-126); Anion Gap 8 mmol/L; Blood Urea Nitrogen 12 mg/dL (9-20); Calcium 8.7 mg/dL (8.4-10.2); Carbon Dioxide 25 mmol/L (22-30); Chloride 102 mmol/L (98-107); Glucose 108 mg/dL (74-99); Non-African American GFR(CKD) 89 (>60 ml/min/1.73 sqM); Potassium 4.2 mmol/L (3.5-5.1); Sodium 135 mmol/L (137-145); Total Bilirubin 1.2 mg/dL (0.2-1.3); Total Protein 6.1 g/dL (6.3-8.2)
[2021-01-10] MEDS: PANTOPRAZOLE 40 MG TABLET PO SCH (06:44)
--- NOTE | 2021-01-10 08:30 | XR ---
EXAMINATION TYPE: XR chest 1V portable DATE OF EXAM: 01/10/2021 COMPARISON: 01/09/2021 INDICATION: Postop cardiac surgery TECHNIQUE: Single frontal view of the chest is obtained. FINDINGS: The heart size is normal. The pulmonary vasculature is normal. The lungs are clear. Postsurgical changes are evident within the cardiac silhouette. IMPRESSION: 1. No acute pulmonary process.
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
[2021-01-10] MEDS ORDERED: bisacodyL 10 MG SUPP RECTAL PRN (09:00)
[2021-01-10] MEDS ORDERED: MAGNESIUM HYDROXIDE 2,400 MG/10 ML CUP PO PRN (09:00)
[2021-01-10] MEDS ORDERED: METOPROLOL TARTRATE 12.5 MG TAB PO SCH (09:00)
[2021-01-10] MEDS ORDERED: NON FORMULARY DRUG (Fish Oil/Dha/Epa [Fish Oil 1,200 Mg Fish Oil] 1 EACH Capsule) PO SCH (09:00)
[2021-01-10] MEDS ORDERED: SODIUM CHLORIDE 0.9% 1,000 ML IV SCH (09:15)
[2021-01-10] MEDS ORDERED: LIDOCAINE 1% INJ 10MG/ML (20 ML MDV) ONE (10:50)
[2021-01-10] MEDS ORDERED: IOPAMIDOL-250 50ML BTL IV ONE (10:54)
[2021-01-10] MEDS ORDERED: IV FLUID CONTINUATION 400 ML IV ONE (11:01)
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
[2021-01-10] MEDS ORDERED: fentaNYL (PF) 50 MCG/ML 2 ML AMP ONE (11:25)
[2021-01-10] MEDS ORDERED: MIDAZOLAM 2 MG/2 ML VIAL IV ONE (11:28)
[2021-01-10] MEDS ORDERED: fentaNYL (PF) 50 MCG/ML 2 ML AMP IV ONE (11:28)
[2021-01-10] MEDS ORDERED: LIDOCAINE 1% INJ 10MG/ML (20 ML MDV) SQ ONE (11:32)
[2021-01-10] MEDS ORDERED: METOPROLOL TARTRATE 5 MG/5 ML VIAL IVP ONE ×2 (12:34→12:36)
--- NOTE | 2021-01-10 12:40 | ECHOF ---
Referral Reason:post tavr MEASUREMENTS -------- HEIGHT: 157.5 cm WEIGHT: 82.1 kg BP: IVSd: 1.2 cm (0.6 - 1.1) LVIDd: 5.7 cm (3.9 - 5.3) LVPWd: 1.1 cm (0.6 - 1.1) EDV(Teich): 159 ml IVSs: 1.4 cm LVIDs: 5.0 cm LVPWs: 1.5 cm %IVS Thck: 17 % ESV(Teich): 120 ml EF(Teich): 24 % %FS: 11 % SV(Teich): 39 ml LALs A4C: 5.5 cm LAAs A4C: 25.3 cm LAESV A-L A4C: 99 ml LAESV MOD A4C: 93 ml LALs A2C: 5.9 cm LAAs A2C: 27.2 cm LAESV A-L A2C: 105 ml LAESV MOD A2C: 103 ml LAESV(A-L): 106 ml LAESV Index (A-L): 58.02 ml/m EPSS: 0.3 cm LVOT Vmax: 1.86 m/s LVOT maxP.28 mmHg LVOT Vmax: 2.08 m/s LVOT Vmean: 1.34 m/s LVOT maxP.45 mmHg LVOT meanP.28 mmHg LVOT Env.Ti: 291 ms LVOT VTI: 38.7 cm AV Vmax: 1.84 m/s AV maxP.90 mmHg AV Vmax: 1.62 m/s AV Vmean: 1.10 m/s AV maxP.62 mmHg AV meanP.55 mmHg AV Env.Ti: 247 ms AV VTI: 26.7 cm AR Vmax: 3.24 m/s AR maxP.98 mmHg AR PHT: 637 ms AR Dec Time: 2198 ms AR Dec [place]: 1.5 m/s TR Vmax: 2.98 m/s TR maxP.42 mmHg RAP: 5.00 mmHg RVSP: 40.42 mmHg MV EF SLOPE: 178.67 mm/s (70 - 150) MV EXCURSION: 21.84 mm (> 18.000) FINDINGS -------- Undetermined rhythm. Pt is post TAVR 01/09/21: follow up for AOV placement. The left ventricular size is normal. There is mild concentric left ventricular hypertrophy. Overa ll left ventricular systolic function is low-normal with, an EF between 50 - 55 %. The right ventricle is normal in size. LA is severely dilated >40 ml/m2 The right atrial size is normal. There is mild aortic regurgitation. Peak/mean gradient across the Aortic Valve is 10.62mmHg / 5.55m mHg. Post TAVR placement. Mild mitral regurgitation is present. Mild tricuspid regurgitation present. There is mild pulmonary hypertension. The right ventricular systolic pressure, as measured by Doppler, is 40.42mmHg. There is no pulmonic regurgitation present. There is no pericardial effusion. CONCLUSIONS -------- 1. Pt is post TAVR 01/09/21: follow up for AOV placement. 2. The left ventricular size is normal. 3. There is mild concentric left ventricular hypertrophy. 4. Overall left ventricular systolic function is low-normal with, an EF between 50 - 55 %. 5. The right ventricle is normal in size. 6. LA is severely dilated >40 ml/m2 7. The right atrial size is normal. 8. There is mild aortic regurgitation. 9. Peak/mean gradient across the Aortic Valve is 10.62mmHg / 5.55mmHg. 10. Post TAVR placement. 11. Mild mitral regurgitation is present. 12. Mild tricuspid regurgitation present. 13. There is mild pulmonary hypertension. 14. The right ventricular systolic pressure, as measured by Doppler, is 40.42mmHg. 15. There is no pericardial effusion. CHIEF OF SAFETY AND PROTECTION: Lashawn Davalos RDCS
[2021-01-10] MEDS ORDERED: ACETAMINOPHEN TAB 325 MG TAB PO PRN (12:41)
--- NOTE | 2021-01-10 12:51 | P.PCN ---
Date of Procedure: 01/10/21 Preoperative Diagnosis: Complete heart block, status post AVR Postoperative Diagnosis: The same Procedure(s) Performed: Dual-chamber permanent pacemaker implantation, axillary venography Description of Procedure: HISTORY: This is a 75-year-old gentleman with had aortic valve replacement through trans-arterial approach yesterday. Patient will be completed AV block requiring permanent pacemaker implantation. CONSENT:I have discussed the risks, benefits and alternative therapies for the above-mentioned procedure and for both sedation/analgesia as well as necessary blood product administration, if indicated, as they pertain to this patient. The patient has indicated understanding and acceptance of the risks and procedures discussed. PROCEDURE: Patient was brought to the lab in a fasting state. Patient was prepped and draped in the usual fashion. Patient was given IV sedation with fentanyl and Versed. The skin below the left clavicle was infiltrated with lidocaine. An incision was made parallel to deltopectoral groove was deepened until the pectoral fascia was exposed. A pocket was created by blunt dissection and cautery. Axillary venography was performed to delineate the course of the axillary vein. 2 sticks were performed into extrathoracic portion of the axillary vein and 2 sheaths were advanced over the guidewires and left in subclavian vein. Conscious Sedation: Versed 1mg Fentanyl 25 g Duration 65minutes LEADS: ATRIAL: This is manufactured by [employer]. Model number is [id number] and the serial number is [id number] VENTRICULAR: . This is manufactured by [employer]. Model number is 2088-58 and the serial number is [id number]. THE DEVICE: This is manufactured by [employer]. The model number is [id number] and the serial number is [id number] The ventricular lead is maneuvered l with help of a straight and curved stylets into the left ventricle apical region. Satisfactory position was obtained and threshold measurements were made. The atrial lead was then maneuvered into the right atrial appendage. And thresholds were obtained. THRESHOLDS: ATRIUM: The minimum patient threshold is 0.75 V at pulse width of 0.4 ms. The impedance is 510 P-wave: 2.5 VENTRICLE: . The minimum patient threshold is 0.5 at pulse width of 0.4 ms. The impedance is 6:30 R-wave: Not measured The leads and pulse generator remained in the pocket after it was washed with antibiotics. Pocket was closed in the usual fashion. The fasc ia was closed with 2-0 Prolene ,the subcutaneous tissue was closed with 3-0 Prolene and the skin was closed with 4-0 Prolene. PROGRAMMING: MODE: DDDR mode RATE: 60 to 130 OUTPUT: Atrium: 3.5 Ventricle: 3.5 FINAL IMPRESSION: #1. Axillary venography #2. Successful implantation of dual- chamber pacemaker COMPLICATIONS: None PLAN: Patient will monitored on the telemetry unit. Continue prophylactic antibiotics.
[2021-01-10] MEDS: CLOPIDOGREL 75 MG TAB PO SCH (13:25)
[2021-01-10] MEDS: HEPARIN SODIUM,PORCINE/PF 5,000 UNIT/0.5 ML SYRINGE SQ SCH ×2 (13:25→17:14)
[2021-01-10] MEDS: ASPIRIN 81 MG PO SCH (13:25)
[2021-01-10] MEDS: ATORVASTATIN 40 MG TAB PO SCH (13:25)
[2021-01-10] MEDS: SODIUM CHLORIDE 0.9% 1,000 ML IV SCH (13:26)
[2021-01-10] MEDS: MEMANTINE 10 MG TAB PO SCH ×2 (13:28→20:58)
[2021-01-10] MEDS: DOXAZOSIN 4 MG TAB PO SCH (20:58)
[2021-01-10] MEDS ORDERED: SENNOSIDES-DOCUSATE SODIUM 1 EACH TAB PO SCH (21:00)
[2021-01-11] MEDS: HEPARIN SODIUM,PORCINE/PF 5,000 UNIT/0.5 ML SYRINGE SQ SCH ×2 (00:10→08:23)
[2021-01-11] MEDS: SODIUM CHLORIDE 0.9% 1,000 ML IV SCH (04:40)
[2021-01-11 05:30] LABS: HCT 32.6 % (39.0-53.0); HGB 11.4 gm/dL (13.0-17.5); MCH 33.3 pg (25.0-35.0); MCHC 34.9 g/dL (31.0-37.0); MCV 95.3 fL (80.0-100.0); Mean Platelet Volume 7.3; Platelet Count 145 k/uL (150-450); RBC 3.42 m/uL (4.30-5.90); WBC 8.4 k/uL (3.8-10.6)
[2021-01-11 05:45] LABS: African American GFR (CKD) >90 (>60 ml/min/1.73 sqM); Anion Gap 5 mmol/L; Blood Urea Nitrogen 18 mg/dL (9-20); Calcium 8.5 mg/dL (8.4-10.2); Carbon Dioxide 28 mmol/L (22-30); Chloride 102 mmol/L (98-107); Glucose 99 mg/dL (74-99); Non-African American GFR(CKD) >90 (>60 ml/min/1.73 sqM); Potassium 4.2 mmol/L (3.5-5.1); Sodium 135 mmol/L (137-145)
[2021-01-11] MEDS: PANTOPRAZOLE 40 MG TABLET PO SCH (06:46)
[2021-01-11] MEDS ORDERED: ceFAZolin 1 GM in SODIUM CHLORIDE 0.9% 250 ML IRRIGATION PRN (07:00)
--- NOTE | 2021-01-11 08:13 | XR ---
EXAMINATION TYPE: XR chest 2V DATE OF EXAM: 01/11/2021 COMPARISON: 01/10/2021 TECHNIQUE: PA and lateral views submitted. HISTORY: Lead placement check FINDINGS: The lungs are clear and there is no pneumothorax, pleural effusion, or focal pneumonia. Double lead pacemaker noted. Proximal lead overlies the right atrium and distal lead overlies the right ventricle . Arthropathy of the AC joints. Postsurgical change noted. Degenerative change of the spine. Suggesti on of hiatal hernia. Mild hyperinflation of the lungs. IMPRESSION: 1. Pacemaker placement with no postprocedural complication.
[2021-01-11] MEDS: ATORVASTATIN 40 MG TAB PO SCH (08:23)
[2021-01-11] MEDS: MEMANTINE 10 MG TAB PO SCH (08:23)
[2021-01-11] MEDS: CLOPIDOGREL 75 MG TAB PO SCH (08:23)
[2021-01-11] MEDS: ASPIRIN 81 MG PO SCH (08:23)
[2021-01-11] MEDS ORDERED: METOPROLOL TARTRATE 25 MG TAB PO SCH (09:00)
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
[2021-01-11 12:18] VITALS: BP 136/81; PULSE 74; RESP 12; TEMP 98
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
== END 2021-01-11 13:39 | disposition home or self-care (01) | DRG 267 ==
LOC: 2ORMAIN 07:07 → 2SICU 12:38
PROVIDERS: ADMIT Internal Medicine; ATTEND Internal Medicine
PROC: 5A1223Z Performance of Cardiac Pacing, Continuous (ICD-10-PCS; 2021-01-09)
PROC: 02H63JZ Insertion of Pacemaker Lead into Right Atrium, Percutaneous Approach (ICD-10-PCS; 2021-01-09)
PROC: 02HK3JZ Insertion of Pacemaker Lead into Right Ventricle, Percutaneous Approach (ICD-10-PCS; 2021-01-09)
PROC: 02RF38Z Replacement of Aortic Valve with Zooplastic Tissue, Percutaneous Approach (ICD-10-PCS; principal; 2021-01-09 10:00)
PROC: 0JH606Z Insertion of Pacemaker, Dual Chamber into Chest Subcutaneous Tissue and Fascia, Open Approach (ICD-10-PCS; 2021-01-10)
PROC: B246ZZ4 Ultrasonography of Right and Left Heart, Transesophageal (ICD-10-PCS; 2021-01-10)
PROC: B3101ZZ Fluoroscopy of Thoracic Aorta using Low Osmolar Contrast (ICD-10-PCS; 2021-01-10)
DX: I35.2 Nonrheumatic aortic (valve) stenosis with insufficiency (principal); I44.2 Atrioventricular block, complete; R47.01 Aphasia; J44.9 Chronic obstructive pulmonary disease, unspecified; I25.10 Atherosclerotic heart disease of native coronary artery without angina pectoris; Z87.820 Personal history of traumatic brain injury; V49.9XXS Car occupant (driver) (passenger) injured in unspecified traffic accident, sequela; Z00.6 Encounter for examination for normal comparison and control in clinical research program; S09.90XS Unspecified injury of head, sequela; F03.90 Unspecified dementia, unspecified severity, without behavioral disturbance, psychotic disturbance, mood disturbance, and anxiety; N40.1 Benign prostatic hyperplasia with lower urinary tract symptoms; Z79.899 Other long term (current) drug therapy; R33.8 Other retention of urine; Z80.42 Family history of malignant neoplasm of prostate; F17.210 Nicotine dependence, cigarettes, uncomplicated; M19.90 Unspecified osteoarthritis, unspecified site; F41.9 Anxiety disorder, unspecified
CPT/HCPCS: 33208; 33361; 71045; 71046; 80048; 80053; 82330; 83735; 85025; 85027; 85520; 85610; 85730; 86850; 86891; 86900; 86901; 86920; 93306; 93312; 93320; 93325

== ENCOUNTER 2021-01-16 22:33 | Observation (INO) | payer MEDICARE ==
[2021-01-16] MEDS ORDERED: methylPREDNISolone SOD SUCCI 125 MG/2 ML VIAL IV STA (22:41)
[2021-01-16] MEDS ORDERED: IPRATROPIUM 0.5 MG/2.5 ML NEBU INHALATION STA (22:41)
[2021-01-16] MEDS ORDERED: ALBUTEROL NEBULIZED 2.5 MG/3 ML INHALATION STA (22:41)
[2021-01-16] MEDS: SODIUM CHLORIDE 0.9% 1,000 ML IV STA (23:11)
[2021-01-16] MEDS ORDERED: IBUPROFEN IV 800 MG in SODIUM CHLORIDE 0.9% 250 ML IV ONE (23:15)
--- NOTE | 2021-01-16 23:59 | XR ---
EXAMINATION TYPE: XR chest 2V DATE OF EXAM: 01/16/2021 COMPARISON: 01/11/2021 HISTORY: Short of breath TECHNIQUE: FINDINGS: There is no heart failure. There is hiatal hernia. Lungs are clear of consolidation. There is left axillary pacemaker. There are small calcified granulomata in both lungs. There is aortic valv e surgery. Thoracic aorta is atheromatous. Thoracic spine is intact. IMPRESSION: Hiatal hernia. No definite acute lung disease. No heart failure seen. No change compared to old exam.
[2021-01-17 00:04] LABS: Basophils % (A) 0 %; Eosinophils # (A) 0.2 k/uL (0-0.7); Eosinophils % (A) 1 %; HCT 32.4 % (39.0-53.0); HGB 10.8 gm/dL (13.0-17.5); Lymphocytes # (A) 0.9 k/uL (1.0-4.8); Lymphocytes % (A) 5 %; MCH 32.8 pg (25.0-35.0); MCHC 33.3 g/dL (31.0-37.0); MCV 98.5 fL (80.0-100.0); Mean Platelet Volume 7.3; Monocytes # (A) 0.7 k/uL (0-1.0); Monocytes % (A) 5 %; Neutrophils # (A) 14.2 k/uL (1.3-7.7); Neutrophils % (A) 88 %; Platelet Count 201 k/uL (150-450); RBC 3.29 m/uL (4.30-5.90); RDW 13.5 % (11.5-15.5); WBC 16.2 k/uL (3.8-10.6)
[2021-01-17] MEDS: ACETAMINOPHEN IV (For NPO) 1,000 MG in EMPTY BAG 1 BAG IVPB ONE ×2 (00:06→03:38)
[2021-01-17 00:13] LABS: Partial Thromboplastin Time 24.6 sec (22.0-30.0); Prothrombin Time 10.6 sec (9.0-12.0)
--- NOTE | 2021-01-17 00:50 | ED ---
SOB HPI - General Chief Complaint: Shortness of Breath Stated Complaint: SOB Time Seen by Provider: 01/16/21 22:39 Source: patient, EMS, RN notes reviewed, old records reviewed Mode of arrival: EMS Limitations: no limitations - History of Present Illness Initial Comments: This is a 75-year-old male DF for evaluation is relatively poor story secondary to some short-term memory loss and forgetfulness. Patient presents with family member for fever, she thinks may be shortness of breath. Patient has recent surgery, valve replacement as well as pacemaker placement. Did have indwelling Corey at the time. Patient is currently without any other significant complaints MD Complaint: shortness of breath (Which has been since surgery) -: days(s) Severity: mild (A she did developed fever today), moderate Severity scale (1-10): 5 Consistency: constant Improves With: oxygen, rest Worsens With: exertion Known History Of: congestive heart failure Context: recent illness Associated Symptoms: fever, cough, polyuria Treatments Prior to Arrival: none - Related Data Home Medications Medication Instructions Recorded Confirmed Doxazosin Mesylate 8 mg PO HS 01/25/18 01/16/21 Fish Oil/Dha/Epa [Fish Oil 1,200 1 cap PO BID 01/25/18 01/16/21 mg Fish Oil] Memantine [Namenda] 10 mg PO BID 01/25/18 01/16/21 Previous Rx's Medication Instructions Recorded Acetaminophen Tab [Tylenol] 650 mg PO Q4HR PRN tab 01/11/21 Aspirin 81 mg PO DAILY #30 chew 01/11/21 Atorvastatin [Lipitor] 40 mg PO DAILY #30 tab 01/11/21 Clopidogrel [Plavix] 75 mg PO DAILY #30 tab 01/11/21 Metoprolol Tartrate [Lopressor] 25 mg PO BID #60 tab 01/11/21 Pantoprazole [Protonix] 40 mg PO BACILIO-VELIAFSPaola #30 tablet. 01/11/21 Allergies Allergy/AdvReac Type Severity Reaction Status Date / Time codeine AdvReac Nausea Verified 01/16/21 23:15 Review of Systems ROS Statement: Those systems with pertinent positive or pertinent negative responses have been documented in the HPI. ROS Other: All systems not noted in ROS Statement are negative. 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 Knee replacemnts; Tendon repair right Elbow x2, Colonoscopy Past Anesthesia/Blood Transfusion Reactions: No Reported Reaction Past Psychological History: Anxiety Smoking Status: Current every day smoker Past Alcohol Use History: None Reported Past Drug Use History: None Reported - Past Family History Father Family Medical History: Cancer Additional Family Medical History / Comment(s): Prostate CA General Exam - General Exam Comments Initial Comments: Incisions are clean dry and intact Limitations: no limitations General appearance: alert, in no apparent distress, anxious Head exam: Present: atraumatic, normocephalic, normal inspection Eye exam: Present: normal appearance, PERRL, EOMI. Absent: scleral icterus, conjunctival injection, periorbital swelling ENT exam: Present: normal exam, mucous membranes moist Neck exam: Present: normal inspection. Absent: tenderness, meningismus, lymphadenopathy Respiratory exam: Present: rhonchi, decreased breath sounds. Absent: respiratory distress, wheezes, rales, stridor Cardiovascular Exam: Present: regular rate, normal rhythm, normal heart sounds. Absent: systolic murmur, diastolic murmur, rubs, gallop, clicks GI/Abdominal exam: Present: soft, normal bowel sounds. Absent: distended, tenderness, guarding, rebound, rigid Extremities exam: Present: normal inspection, full ROM, normal capillary refill. Absent: tenderness, pedal edema, joint swelling, calf tenderness Back exam: Present: normal inspection Neurological exam: Present: alert, oriented X3, CN II-XII intact Psychiatric exam: Present: normal affect, normal mood Skin exam: Present: warm, dry, intact, normal color. Absent: rash Course Vital Signs 01/16/21 01/16/21 01/17/21 22:35 23:10 00:51 Temperature 102.8 F H Pulse Rate 92 66 Pulse Rate [ Pulse Oximetery ] Respiratory 22 18 Rate Blood Pressure 132/64 Blood Pressure [Right Arm] O2 Sat by Pulse 93 L Oximetry 01/17/21 01/17/21 01/17/21 01:21 01:42 01:46 Temperature 98.7 F Pulse Rate 71 73 Pulse Rate [ Pulse Oximetery ] Respiratory 20 Rate Blood Pressure 119/62 Blood Pressure [Right Arm] O2 Sat by Pulse 98 Oximetry 01/17/21 02:35 Temperature 98.0 F Pulse Rate Pulse Rate [ 68 Pulse Oximetery ] Respiratory 20 Rate Blood Pressure Blood Pressure 137/60 [Right Arm] O2 Sat by Pulse 93 L Oximetry - Reevaluation(s) Reevaluation #1: 01/17/21 03:39 Medical record is reviewed Reevaluation #2: 01/17/21 03:39 Patient family informed of results and questions answered - Consultations Consultation #1: Spoke with Dr. Lawson who agrees to admit this patient Consultation #2: Will consult cardiology as well as thoracic surgery regarding recent surgery Medical Decision Making - Medical Decision Making 75 male who presented today with some shortness of breath a little is been a persistent issue for him he also has fever and urinary tract infection. Patient be admitted for IV antibiotics, chest x-rays negative, patient is of recent surgery and pacer placement, no current ocmplaints - Lab Data Result diagrams: 01/16/21 23:19 01/16/21 23:19 Lab Results 01/16/21 01/16/21 01/16/21 Range/Units 23:19 23:19 23:19 WBC 16.2 H (3.8-10.6) k/uL RBC 3.29 L (4.30-5.90) m/uL Hgb 10.8 L (13.0-17.5) gm/dL Hct 32.4 L (39.0-53.0) % MCV 98.5 (80.0-100.0) fL MCH 32.8 (25.0-35.0) pg MCHC 33.3 (31.0-37.0) g/dL RDW 13.5 (11.5-15.5) % Plt Count 201 (150-450) k/uL MPV 7.3 Neutrophils % 88 % Lymphocytes % 5 % Monocytes % 5 % Eosinophils % 1 % Basophils % 0 % Neutrophils # 14.2 H (1.3-7.7) k/uL Lymphocytes # 0.9 L (1.0-4.8) k/uL Monocytes # 0.7 (0-1.0) k/uL Eosinophils # 0.2 (0-0.7) k/uL Basophils # 0.0 (0-0.2) k/uL PT 10.6 (9.0-12.0) sec INR 1.0 (<1.2) APTT 24.6 (22.0-30.0) sec Sodium 131 L (137-145) mmol/L Potassium 4.2 (3.5-5.1) mmol/L Chloride 97 L (98-107) mmol/L Carbon Dioxide 27 (22-30) mmol/L Anion Gap 7 mmol/L BUN 17 (9-20) mg/dL Creatinine 0.90 (0.66-1.25) mg/dL Est GFR (CKD-EPI)AfAm >90 (>60 ml/min/1.73 sqM) Est GFR (CKD-EPI)NonAf 84 (>60 ml/min/1.73 sqM) Glucose 97 (74-99) mg/dL Plasma Lactic Acid Karthikeyan (0.7-2.0) mmol/L Calcium 8.7 (8.4-10.2) mg/dL Magnesium 1.8 (1.6-2.3) mg/dL Total Bilirubin 1.3 (0.2-1.3) mg/dL AST 24 (17-59) U/L ALT 12 (4-49) U/L Alkaline Phosphatase 69 (38-126) U/L Creatine Kinase 47 L (55-170) U/L Troponin I (0.000-0.034) ng/mL NT-Pro-B Natriuret Pep pg/mL Total Protein 6.0 L (6.3-8.2) g/dL Albumin 3.4 L (3.5-5.0) g/dL Urine Color Urine Appearance (Clear) Urine pH (5.0-8.0) Ur Specific [place] (1.001-1.035) Urine Protein (Negative) Urine Glucose (UA) (Negative) Urine Ketones (Negative) Urine Blood (Negative) Urine Nitrite (Negative) Urine Bilirubin (Negative) Urine Urobilinogen (<2.0) mg/dL Ur Leukocyte Esterase (Negative) Urine RBC (0-5) /hpf Urine WBC (0-5) /hpf Urine WBC Clumps (None) /hpf Urine Bacteria (None) /hpf Urine Mucus (None) /hpf 01/16/21 01/16/21 01/16/21 Range/Units 23:19 23:19 23:19 WBC (3.8-10.6) k/uL RBC (4.30-5.90) m/uL Hgb (13.0-17.5) gm/dL Hct (39.0-53.0) % MCV (80.0-100.0) fL MCH (25.0-35.0) pg MCHC (31.0-37.0) g/dL RDW (11.5-15.5) % Plt Count (150-450) k/uL MPV Neutrophils % % Lymphocytes % % Monocytes % % Eosinophils % % Basophils % % Neutrophils # (1.3-7.7) k/uL Lymphocytes # (1.0-4.8) k/uL Monocytes # (0-1.0) k/uL Eosinophils # (0-0.7) k/uL Basophils # (0-0.2) k/uL PT (9.0-12.0) sec INR (<1.2) APTT (22.0-30.0) sec Sodium (137-145) mmol/L Potassium (3.5-5.1) mmol/L Chloride (98-107) mmol/L Carbon Dioxide (22-30) mmol/L Anion Gap mmol/L BUN (9-20) mg/dL Creatinine (0.66-1.25) mg/dL Est GFR (CKD-EPI)AfAm (>60 ml/min/1.73 sqM) Est GFR (CKD-EPI)NonAf (>60 ml/min/1.73 sqM) Glucose (74-99) mg/dL Plasma Lactic Acid Karthikeyan 1.0 (0.7-2.0) mmol/L Calcium (8.4-10.2) mg/dL Magnesium (1.6-2.3) mg/dL Total Bilirubin (0.2-1.3) mg/dL AST (17-59) U/L ALT (4-49) U/L Alkaline Phosphatase (38-126) U/L Creatine Kinase (55-170) U/L Troponin I 0.091 H* (0.000-0.034) ng/mL NT-Pro-B Natriuret Pep 2460 pg/mL Total Protein (6.3-8.2) g/dL Albumin (3.5-5.0) g/dL Urine Color Urine Appearance (Clear) Urine pH (5.0-8.0) Ur Specific [place] (1.001-1.035) Urine Protein (Negative) Urine Glucose (UA) (Negative) Urine Ketones (Negative) Urine Blood (Negative) Urine Nitrite (Negative) Urine Bilirubin (Negative) Urine Urobilinogen (<2.0) mg/dL Ur Leukocyte Esterase (Negative) Urine RBC (0-5) /hpf Urine WBC (0-5) /hpf Urine WBC Clumps (None) /hpf Urine Bacteria (None) /hpf Urine Mucus (None) /hpf 01/17/21 Range/Units 00:18 WBC (3.8-10.6) k/uL RBC (4.30-5.90) m/uL Hgb (13.0-17.5) gm/dL Hct (39.0-53.0) % MCV (80.0-100.0) fL MCH (25.0-35.0) pg MCHC (31.0-37.0) g/dL RDW (11.5-15.5) % Plt Count (150-450) k/uL MPV Neutrophils % % Lymphocytes % % Monocytes % % Eosinophils % % Basophils % % Neutrophils # (1.3-7.7) k/uL Lymphocytes # (1.0-4.8) k/uL Monocytes # (0-1.0) k/uL Eosinophils # (0-0.7) k/uL Basophils # (0-0.2) k/uL PT (9.0-12.0) sec INR (<1.2) APTT (22.0-30.0) sec Sodium (137-145) mmol/L Potassium (3.5-5.1) mmol/L Chloride (98-107) mmol/L Carbon Dioxide (22-30) mmol/L Anion Gap mmol/L BUN (9-20) mg/dL Creatinine (0.66-1.25) mg/dL Est GFR (CKD-EPI)AfAm (>60 ml/min/1.73 sqM) Est GFR (CKD-EPI)NonAf (>60 ml/min/1.73 sqM) Glucose (74-99) mg/dL Plasma Lactic Acid Karthikeyan (0.7-2.0) mmol/L Calcium (8.4-10.2) mg/dL Magnesium (1.6-2.3) mg/dL Total Bilirubin (0.2-1.3) mg/dL AST (17-59) U/L ALT (4-49) U/L Alkaline Phosphatase (38-126) U/L Creatine Kinase (55-170) U/L Troponin I (0.000-0.034) ng/mL NT-Pro-B Natriuret Pep pg/mL Total Protein (6.3-8.2) g/dL Albumin (3.5-5.0) g/dL Urine Color Yellow Urine Appearance Turbid (Clear) Urine pH 6.5 (5.0-8.0) Ur Specific [place] 1.018 (1.001-1.035) Urine Protein 1+ H (Negative) Urine Glucose (UA) Negative (Negative) Urine Ketones Negative (Negative) Urine Blood Large H (Negative) Urine Nitrite Negative (Negative) Urine Bilirubin Negative (Negative) Urine Urobilinogen <2.0 (<2.0) mg/dL Ur Leukocyte Esterase Large H (Negative) Urine RBC 17 H (0-5) /hpf Urine WBC >182 H (0-5) /hpf Urine WBC Clumps Many H (None) /hpf Urine Bacteria Few H (None) /hpf Urine Mucus Few H (None) /hpf - EKG Data -: EKG Interpreted by Me (EKG shows paced rhythm VA 194 QRS 180 QTc 520) - Radiology Data Radiology results: report reviewed (Chest x-rays negative for acute disease), image reviewed Disposition Clinical Impression: Fever, UTI (urinary tract infection), Weakness Disposition: ADMITTED IP TO THIS HOSP Condition: Good Is patient prescribed a controlled substance at d/c from ED?: No
[2021-01-17 01:00] LABS: ALT 12 U/L (4-49); AST 24 U/L (17-59); African American GFR (CKD) >90 (>60 ml/min/1.73 sqM); Albumin 3.4 g/dL (3.5-5.0); Alkaline Phosphatase 69 U/L (38-126); Anion Gap 7 mmol/L; Blood Urea Nitrogen 17 mg/dL (9-20); Calcium 8.7 mg/dL (8.4-10.2); Carbon Dioxide 27 mmol/L (22-30); Chloride 97 mmol/L (98-107); Creatine Kinase 47 U/L (55-170); Glucose 97 mg/dL (74-99); Magnesium 1.8 mg/dL (1.6-2.3); Non-African American GFR(CKD) 84 (>60 ml/min/1.73 sqM); Potassium 4.2 mmol/L (3.5-5.1); Sodium 131 mmol/L (137-145); Total Bilirubin 1.3 mg/dL (0.2-1.3)
[2021-01-17] MEDS ORDERED: AMPICILLIN-SULBACTAM 3 GM in SODIUM CHLORIDE 0.9% 100 ML IVPB STA (01:18)
[2021-01-17 01:31] LABS: Appearance,Urine Turbid (Clear); Bacteria,Urine Few /hpf; Bilirubin,Urine Negative (Negative); Blood,Urine Large (Negative); Color,Urine Yellow; Glucose,Urine (UA) Negative (Negative); Ketones,Urine Negative (Negative); Leukocyte Esterase,Urine Large (Negative); Mucus,Urine Few /hpf; Nitrite,Urine Negative (Negative); PH, Urine 6.5 (5.0-8.0); Protein,Urine 1+ (Negative); RBC,Urine 17 /hpf (0-5); Specific Gravity,Urine 1.018 (1.001-1.035); Urobilinogen,Urine <2.0 mg/dL (<2.0); WBC,Urine >182 /hpf (0-5)
[2021-01-17] MEDS ORDERED: NALOXONE 0.4 MG/ML 1 ML VIAL IV PRN (01:51)
[2021-01-17] MEDS ORDERED: MORPHINE SULFATE 4 MG/ML SYRINGE IV PRN (01:51)
[2021-01-17] MEDS ORDERED: IPRATROPIUM-ALBUTEROL 3 ML NEB INHALATION STA (02:13)
[2021-01-17] MEDS: SODIUM CHLORIDE 0.9% 1,000 ML IV STA (04:08)
[2021-01-17] MEDS: SODIUM CHLORIDE 0.9% 1,000 ML IV SCH ×3 (04:09→20:45)
[2021-01-17] MEDS ORDERED: ACETAMINOPHEN TAB 325 MG TAB PO PRN (07:54)
[2021-01-17] MEDS ORDERED: NON FORMULARY DRUG (Fish Oil/Dha/Epa [Fish Oil 1,200 Mg Fish Oil] 1 EACH Capsule) PO SCH (09:00)
[2021-01-17] MEDS: MEMANTINE 10 MG TAB PO SCH ×2 (09:26→20:44)
[2021-01-17] MEDS: ASPIRIN 81 MG PO SCH (09:26)
[2021-01-17] MEDS: ATORVASTATIN 40 MG TAB PO SCH (09:26)
[2021-01-17] MEDS: CLOPIDOGREL 75 MG TAB PO SCH (09:26)
[2021-01-17] MEDS: METOPROLOL TARTRATE 25 MG TAB PO SCH ×2 (09:26→20:44)
--- NOTE | 2021-01-17 10:28 | P.GSCN ---
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 He developed postoperative urinary retention. He was seen by Dr. Barry in the office 01/15/2021. His Corey catheter was removed. He has been voiding without difficulty since that time. He has dementia and is a poor historian. He was admitted with fever and dyspnea. I spoke with his to clarify the above. 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 Knee replacemnts; Tendon repair right Elbow x2, Colonoscopy Past Anesthesia/Blood Transfusion Reactions: No Reported Reaction Past Psychological History: Anxiety Smoking Status: Current every day smoker Past Alcohol Use History: None Reported Past Drug Use History: None Reported - Past Family History Father Family Medical History: Cancer Additional Family Medical History / Comment(s): Prostate CA Medications and Allergies Home Medications Medication Instructions Recorded Confirmed Type Doxazosin Mesylate 8 mg PO HS 01/25/18 01/16/21 History Fish Oil/Dha/Epa [Fish Oil 1,200 1 cap PO BID 01/25/18 01/16/21 History mg Fish Oil] Memantine [Namenda] 10 mg PO BID 01/25/18 01/16/21 History Acetaminophen Tab [Tylenol] 650 mg PO Q4HR PRN tab 01/11/21 01/16/21 Rx Aspirin 81 mg PO DAILY #30 chew 01/11/21 01/16/21 Rx Atorvastatin [Lipitor] 40 mg PO DAILY #30 tab 01/11/21 01/16/21 Rx Clopidogrel [Plavix] 75 mg PO DAILY #30 tab 01/11/21 01/16/21 Rx Metoprolol Tartrate [Lopressor] 25 mg PO BID #60 tab 01/11/21 01/16/21 Rx Pantoprazole [Protonix] 40 mg PO RUBYKFST #30 tablet. 01/11/21 01/16/21 Rx Allergies Allergy/AdvReac Type Severity Reaction Status Date / Time codeine AdvReac Nausea Verified 01/16/21 23:15 Surgical - Exam Vital Signs Temp Pulse Resp BP Pulse Ox 102.8 F H 92 22 132/64 93 L 01/16/21 22:35 01/16/21 22:35 01/16/21 22:35 01/16/21 22:35 01/16/21 22:35 - General well developed, well nourished, no distress - Respiratory normal respiratory effort - Abdomen Abdomen: soft, non tender, no guarding, no rigid, no rebound - Genitourinary Normal phallus, normal urethral meatus. The scrotum and testes are normal. Ecchymosis of the groin and genitalia is noted. Results - Labs 01/16/21 23:19 01/16/21 23:19 Abnormal Lab Results - Last 24 Hours (Table) 01/16/21 01/16/21 01/16/21 Range/Units 23:19 23:19 23:19 WBC 16.2 H (3.8-10.6) k/uL RBC 3.29 L (4.30-5.90) m/uL Hgb 10.8 L (13.0-17.5) gm/dL Hct 32.4 L (39.0-53.0) % Neutrophils # 14.2 H (1.3-7.7) k/uL Lymphocytes # 0.9 L (1.0-4.8) k/uL Sodium 131 L (137-145) mmol/L Chloride 97 L (98-107) mmol/L Creatine Kinase 47 L (55-170) U/L Troponin I 0.091 H* (0.000-0.034) ng/mL Total Protein 6.0 L (6.3-8.2) g/dL Albumin 3.4 L (3.5-5.0) g/dL Urine Protein (Negative) Urine Blood (Negative) Ur Leukocyte Esterase (Negative) Urine RBC (0-5) /hpf Urine WBC (0-5) /hpf Urine WBC Clumps (None) /hpf Urine Bacteria (None) /hpf Urine Mucus (None) /hpf 01/17/21 01/17/21 Range/Units 00:18 03:29 WBC (3.8-10.6) k/uL RBC (4.30-5.90) m/uL Hgb (13.0-17.5) gm/dL Hct (39.0-53.0) % Neutrophils # (1.3-7.7) k/uL Lymphocytes # (1.0-4.8) k/uL Sodium (137-145) mmol/L Chloride (98-107) mmol/L Creatine Kinase (55-170) U/L Troponin I 0.135 H* (0.000-0.034) ng/mL Total Protein (6.3-8.2) g/dL Albumin (3.5-5.0) g/dL Urine Protein 1+ H (Negative) Urine Blood Large H (Negative) Ur Leukocyte Esterase Large H (Negative) Urine RBC 17 H (0-5) /hpf Urine WBC >182 H (0-5) /hpf Urine WBC Clumps Many H (None) /hpf Urine Bacteria Few H (None) /hpf Urine Mucus Few H (None) /hpf Diabetes panel 01/16/21 Range/Units 23:19 Sodium 131 L (137-145) mmol/L Potassium 4.2 (3.5-5.1) mmol/L Chloride 97 L (98-107) mmol/L Carbon Dioxide 27 (22-30) mmol/L BUN 17 (9-20) mg/dL Creatinine 0.90 (0.66-1.25) mg/dL Glucose 97 (74-99) mg/dL Calcium 8.7 (8.4-10.2) mg/dL AST 24 (17-59) U/L ALT 12 (4-49) U/L Alkaline Phosphatase 69 (38-126) U/L Total Protein 6.0 L (6.3-8.2) g/dL Albumin 3.4 L (3.5-5.0) g/dL Calcium panel 01/16/21 Range/Units 23:19 Calcium 8.7 (8.4-10.2) mg/dL Albumin 3.4 L (3.5-5.0) g/dL Pituitary panel 01/16/21 Range/Units 23:19 Sodium 131 L (137-145) mmol/L Potassium 4.2 (3.5-5.1) mmol/L Chloride 97 L (98-107) mmol/L Carbon Dioxide 27 (22-30) mmol/L BUN 17 (9-20) mg/dL Creatinine 0.90 (0.66-1.25) mg/dL Glucose 97 (74-99) mg/dL Calcium 8.7 (8.4-10.2) mg/dL Adrenal panel 01/16/21 Range/Units 23:19 Sodium 131 L (137-145) mmol/L Potassium 4.2 (3.5-5.1) mmol/L Chloride 97 L (98-107) mmol/L Carbon Dioxide 27 (22-30) mmol/L BUN 17 (9-20) mg/dL Creatinine 0.90 (0.66-1.25) mg/dL Glucose 97 (74-99) mg/dL Calcium 8.7 (8.4-10.2) mg/dL Total Bilirubin 1.3 (0.2-1.3) mg/dL AST 24 (17-59) U/L ALT 12 (4-49) U/L Alkaline Phosphatase 69 (38-126) U/L Total Protein 6.0 L (6.3-8.2) g/dL Albumin 3.4 L (3.5-5.0) g/dL Assessment and Plan (1) UTI (urinary tract infection) Current Visit: Yes Status: Acute Code(s): N39.0 - URINARY TRACT INFECTION, SITE NOT SPECIFIED SNOMED Code(s): 99566190 (2) Retention of urine, unspecified Current Visit: Yes Status: Acute Code(s): R33.9 - RETENTION OF URINE, UNSPECIFIED SNOMED Code(s): 284081545 Plan: Urinalysis is consistent with infection, and the patient is receiving ceftriaxone. He is currently afebrile. Urine and blood cultures were sent. He continues to receive Cardura 8 mg daily. Bladder Scan will be utilized to check the postvoid residual to ensure adequate bladder emptying, and to determine the possible need for Corey catheter replacement. Time with Patient: Greater than 30
--- NOTE | 2021-01-17 10:34 | HP ---
HISTORY AND PHYSICAL 75-year-old white male has some short-term memory forgetfulness. He became short of breath. He is brought to the hospital. He has had a pacemaker replacement, a valve replacement. He has had ( ) surgery. Has an indwelling Corey. Came with shortness of breath, fevers, history of CHF, cough, polyuria. ALLERGIES: CODEINE. MEDICATIONS: Include doxazosin 8 q.h.s., memantine 10 mg daily, fish oil. 14-point review of systems otherwise negative. PAST MEDICAL: COPD, memory impairment, heart catheterization, joint replacement orthopedic surgery, ESTELLA, bilateral knee replacement, tendon repair. Temp 102.8, pulse is 90s to 60s. Psych: Flat mood and affect. Cranial nerves appear to be intact. Cardiovascular S1, S2. Lungs clear. GI soft. Hematology: Negative Homans. Neurologic: Alert and orient x2. Blood pressure 130s over 80s, respiratory rate 18 to 20, O2 93. LABS: Reviewed. ASSESSMENT: Fever, urinary tract infection. Rocephin will be started. He has large leukocytes, large blood, greater than 182 white cells. Wait for urine culture to come back. Consult Dr. Adair. Continue with antibiotics and wait for Infectious Disease to get involved. Please see further orders. MMODL / IJN: [id number] /
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
--- NOTE | 2021-01-17 18:00 | ECHOF ---
Referral Reason:tavr MEASUREMENTS -------- HEIGHT: 177.8 cm WEIGHT: 86.2 kg BP: 128/60 IVSd: 1.3 cm (0.6 - 1.1) LVIDd: 4.8 cm (3.9 - 5.3) LVPWd: 1.3 cm (0.6 - 1.1) IVSs: 1.5 cm LVIDs: 3.2 cm LVPWs: 2.1 cm LAESV Index (A-L): 50.63 ml/m MV E [place]: 0.74 m/s MV DecT: 226 ms MV A [place]: 0.56 m/s MV E/A Ratio: 1.32 AV maxP.08 mmHg AV meanP.41 mmHg AR PHT: 451 ms FINDINGS -------- This was a technically adequate study. The left ventricular size is normal. There is mild concentric left ventricular hypertrophy. Overa ll left ventricular systolic function is low-normal with, an EF between 50 - 55 %. The right ventricle is normal in size. LA is severely dilated >40 ml/m2 The right atrium was not well visualized. Interatrial and interventricular septum intact. There is mild aortic regurgitation. There is no evidence of aortic stenosis. Peak/mean gradient a cross the Aortic Valve is 13.08mmHg / 7.41mmHg. S/P TAVR Mild mitral annular calcification present. Moderate mitral regurgitation is present. Trace tricuspid regurgitation present. Unable to estimate RVSP due to inadequate TR jet spectral do ppler profile. There is no pulmonic regurgitation present. The aortic root size is normal. IVC Not well visulized. There is no pericardial effusion. CONCLUSIONS -------- 1. The left ventricular size is normal. 2. There is mild concentric left ventricular hypertrophy. 3. Overall left ventricular systolic function is low-normal with, an EF between 50 - 55 %. 4. LA is severely dilated >40 ml/m2 5. There is mild aortic regurgitation. 6. Peak/mean gradient across the Aortic Valve is 13.08mmHg / 7.41mmHg. 7. Mild mitral annular calcification present. 8. Moderate mitral regurgitation is present. 9. Trace tricuspid regurgitation present. [employer]MENT MANAGER: Brunilda Lawrence [facility]
[2021-01-17] MEDS: DOXAZOSIN 4 MG TAB PO SCH (20:44)
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
[2021-01-18] MEDS: SODIUM CHLORIDE 0.9% 1,000 ML IV SCH ×3 (04:19→15:49)
[2021-01-18] MEDS: PANTOPRAZOLE 40 MG TABLET PO SCH (06:37)
[2021-01-18 08:05] LABS: Basophils % (A) 0 %; Eosinophils # (A) 0.2 k/uL (0-0.7); Eosinophils % (A) 1 %; HCT 30.5 % (39.0-53.0); HGB 9.9 gm/dL (13.0-17.5); Lymphocytes # (A) 1.3 k/uL (1.0-4.8); Lymphocytes % (A) 11 %; MCH 31.7 pg (25.0-35.0); MCHC 32.4 g/dL (31.0-37.0); MCV 97.6 fL (80.0-100.0); Mean Platelet Volume 8.5; Monocytes # (A) 0.7 k/uL (0-1.0); Monocytes % (A) 6 %; Neutrophils # (A) 9.4 k/uL (1.3-7.7); Neutrophils % (A) 80 %; Platelet Count 206 k/uL (150-450); RBC 3.13 m/uL (4.30-5.90); RDW 13.1 % (11.5-15.5); WBC 11.7 k/uL (3.8-10.6)
[2021-01-18 08:20] LABS: ALT 11 U/L (4-49); AST 20 U/L (17-59); African American GFR (CKD) >90 (>60 ml/min/1.73 sqM); Albumin 2.8 g/dL (3.5-5.0); Alkaline Phosphatase 50 U/L (38-126); Anion Gap 3 mmol/L; Blood Urea Nitrogen 18 mg/dL (9-20); Calcium 8.2 mg/dL (8.4-10.2); Carbon Dioxide 28 mmol/L (22-30); Chloride 106 mmol/L (98-107); Glucose 101 mg/dL (74-99); Magnesium 2.1 mg/dL (1.6-2.3); Non-African American GFR(CKD) >90 (>60 ml/min/1.73 sqM); Phosphorus 3.1 mg/dL (2.5-4.5); Potassium 4.1 mmol/L (3.5-5.1); Sodium 137 mmol/L (137-145); Total Bilirubin 0.5 mg/dL (0.2-1.3); Total Protein 5.4 g/dL (6.3-8.2)
[2021-01-18] MEDS: MEMANTINE 10 MG TAB PO SCH ×2 (08:56→21:05)
[2021-01-18] MEDS: METOPROLOL TARTRATE 25 MG TAB PO SCH ×2 (08:57→21:05)
[2021-01-18] MEDS: ATORVASTATIN 40 MG TAB PO SCH (08:57)
[2021-01-18] MEDS: CLOPIDOGREL 75 MG TAB PO SCH (08:57)
[2021-01-18] MEDS: ASPIRIN 81 MG PO SCH (08:57)
--- NOTE | 2021-01-18 09:31 | XR ---
EXAMINATION TYPE: XR chest 1V DATE OF EXAM: 01/18/2021 COMPARISON: 01/16/2021 INDICATION: Short of breath TECHNIQUE: Single frontal view of the chest is obtained. FINDINGS: The heart size is enlarged. The pulmonary vasculature is normal. The lungs are clear. Post cardiac surgery changes are evident. Pacemaker overlies the left chest. IMPRESSION: 1. No acute pulmonary process. 2. Cardiomegaly
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
--- NOTE | 2021-01-18 15:12 | PN ---
PROGRESS NOTE Mr. Handley is a 75-year-old male with a history of aortic valve replacement by TAVR recently and permanent pacemaker implantation, who presented with fever and evidence to suggest a urinary tract infection. He is feeling well this morning. His blood pressures are negative. He denies any dizziness, any palpitation. He has a Corey catheter. He is afebrile. His echocardiogram revealed normal function of his aortic valve TAVR. He continues to be, at this time, on aspirin once a day. He is on IV antibiotics. He is on Lipitor 40 mg daily, Plavix 75 mg daily, Cardura 8 mg at bedtime, Namenda 10, metoprolol tartrate 25 mg twice a day, Protonix. PHYSICAL EXAMINATION: Blood pressure 132/60 with a heart rate 60. LUNGS: Clear. HEART: Regular rhythm S1, S2. No S3 with systolic murmur at the base. No diastolic murmur. Pacemaker site clean. ABDOMEN: Soft, nontender. EXTREMITIES: No edema. LAB DATA: Lab data revealed a hemoglobin of 9.9, white blood cell of 11.7, BUN and creatinine of 18 and 0.6. IMPRESSION: 1. Sepsis, most likely urinary tract infection. There is no evidence of bacteremia. 2. Status post recent TAVR. 3. Status post permanent pacemaker implantation. 4. Mild coronary artery disease stable. 5. History of moderate COPD. 6. Prior history of closed head injury. RECOMMENDATION: From the cardiac standpoint, he is stable. We will continue present therapy. I would expect he should be able to be discharged home soon and follow with Dr. Roland as scheduled. MMODL / IJN: [id number] /
[2021-01-18] MEDS ORDERED: SUCRALFATE 1 GM TAB PO PRN (17:24)
--- NOTE | 2021-01-18 18:13 | PN ---
PROGRESS NOTE DATE OF SERVICE: 01/18/2021 REASON FOR FOLLOWUP: Urinary tract infection. INTERVAL HISTORY: Patient is afebrile. The patient is feeling much better. He is breathing comfortably. Denies having any chest pain, shortness of breath or cough. No abdominal pain or diarrhea. PHYSICAL EXAMINATION: Blood pressure 130/63, pulse of 64, temperature 97.9. He is 98% on room air. General description is an elderly male up in the chair in no distress. Respiratory system: Unlabored breathing, decreased breath sounds at the base, no wheeze. Heart S1, S2. Regular rate and rhythm. Abdomen soft, no tenderness. LAB DATA: Hemoglobin is 9.1, white count 11.7, BUN of 18, creatinine 0.64. His urine showing Gram-negative bacilli. DIAGNOSTIC IMPRESSION AND PLAN: Patient admitted to the hospital with weakness and fever concerning for a Gram-negative urinary tract infection. Patient is covered with Rocephin to continue while waiting for the culture to finalize and monitor clinical course closely. MMODL / IJN: [id number] /
[2021-01-18] MEDS: DOXAZOSIN 4 MG TAB PO SCH (21:05)
[2021-01-19] MEDS: SODIUM CHLORIDE 0.9% 1,000 ML IV SCH ×3 (00:12→20:20)
[2021-01-19] MEDS: IPRATROPIUM-ALBUTEROL 3 ML NEB INHALATION PRN ×2 (04:16→19:56)
--- NOTE | 2021-01-19 06:42 | PN ---
PROGRESS NOTE A 75-year-old white male with metabolic encephalopathy secondary to severe UTI. He has a history of BPH, Corey catheter, dementia, coronary artery disease. He is improving. He feels better. Vital signs are stable. CARDIOVASCULAR: S1, S2. Lungs clear. GI is soft. ASSESSMENT: 1. Metabolic encephalopathy secondary to urinary tract infection. 2. Acute on chronic anemia. 3. Leukocytosis secondary to urinary tract infection, improved from 16 down to 11. 4. Elevated troponin secondary to possibly metabolic issue. 5. Protein calorie malnutrition. Cardiology and Pulmonology have cleared him for possible discharge. Waiting for culture and sensitivity to come back. He has gram-negative bacilli in the urine but waiting for culture and sensitivity prior to being discharged home. Continue with Rocephin in the meantime. Cleared by Cardiology and Pulmonology. MMODL / IJN: [id number] /
[2021-01-19] MEDS: PANTOPRAZOLE 40 MG TABLET PO SCH (07:10)
[2021-01-19] MEDS: ASPIRIN 81 MG PO SCH (10:11)
[2021-01-19] MEDS: MEMANTINE 10 MG TAB PO SCH ×2 (10:11→20:24)
[2021-01-19] MEDS: CLOPIDOGREL 75 MG TAB PO SCH (10:11)
[2021-01-19] MEDS: ATORVASTATIN 40 MG TAB PO SCH (10:11)
[2021-01-19] MEDS: METOPROLOL TARTRATE 25 MG TAB PO SCH ×2 (10:11→20:24)
--- NOTE | 2021-01-19 12:27 | P.PN ---
Progress Note - Text Progress Note Date: 01/19/21 Mr. Handley is receiving ceftriaxone and is feeling better. He is afebrile. His WBC count has improved to 11.7. His postvoid residual was over 400 mL, and therefore the Corey catheter was replaced. The urine culture shows shown a Serratia UTI, sensitive only to IV antibiotics. He has an appointment to see Dr. Barry on 01/22/2021. I would suggest that the Corey catheter remain in place until that time. Alternative management options for the urinary retention were discussed with the patient and his , who is a nurse. She states that because of his dementia he would be unable to perform intermittent self- catheterization. If his prostate is moderately to significantly enlarged, he may benefit from the addition of finasteride to the alpha-alexander he is currently taking. He may require a TURP in order for the retention resolved.
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
--- NOTE | 2021-01-19 13:29 | PN ---
PROGRESS NOTE DATE OF SERVICE: 01/19/2021 REASON FOR FOLLOWUP: Urinary tract infection. INTERVAL HISTORY: The patient is afebrile. The patient is feeling better. Breathing comfortably. Denies having any chest pain, shortness of breath or cough. No abdominal pain or diarrhea. PHYSICAL EXAMINATION: Blood pressure 130/57, pulse of 65, temperature 97.5, he is 97% on room air. General description is an elderly male up in the chair in no distress. Respiratory system: Unlabored breathing, clear to auscultation anteriorly. Heart S1, S2. Regular rate and rhythm. Abdomen is soft, no tenderness. LABS: Hemoglobin is 9.8, white count 11.7, BUN of 18, creatinine 0.64. Urine showing drug- resistant Serratia marcescens. DIAGNOSTIC IMPRESSION AND PLAN: Patient admitted to the hospital with fever concern for urinary tract infection. Patient showed overall improvement on the Rocephin. However, cultures are showing a drug-resistant Serratia, possible contaminant. We will repeat a UA and cultures. If the patient has cleared his UA may be able to transition to oral Ceftin. If not, we may need to continue with IV antibiotic on discharge. Antibiotic has been adjusted to cefepime while waiting for a workup to complete. MMODL / IJN: [id number] /
--- NOTE | 2021-01-19 14:21 | PN ---
PROGRESS NOTE Mr. Handley is a 75-year-old male status post TAVR and permanent pacemaker implantation, who presented with symptoms of dizziness, fever and evidence of urinary tract infection. He has been evaluated by Dr. Mendez. He is feeling better overall. His breathing is better. He denies symptoms of chest pain. No dizziness. His urine culture came back positive for Serratia marcescens resistant to Rocephin and he has been evaluated by Dr. Adair regarding the antibiotics. He continues to have an indwelling Corey catheter. His blood cultures are negative. He continues to be at this time on aspirin once a day, Lipitor 40 mg daily, Plavix 75 mg daily, memantine, metoprolol tartrate 25 mg twice a day. PHYSICAL EXAMINATION: Blood pressure 130/67 with a heart rate in the 60s. LUNGS: Clear. HEART: Regular rate and rhythm S1, S2. No S3 with systolic murmur, no diastolic murmur. ABDOMEN: Soft, obese, nontender. EXTREMITIES: No significant edema. IMPRESSION: 1. Urinary tract infection and indwelling following catheter. 2. Status post TAVR, stable. 3. Status post permanent pacemaker implantation. 4. Mild coronary artery disease. 5. Moderate COPD. 6. History of closed head injury. RECOMMENDATION: From the cardiac standpoint, the patient is stable. We will see him on as-needed basis. He will follow up with Dr. Roland as an outpatient. MMISMAELL / MILKAN: [id number] /
[2021-01-19 16:29] LABS: Appearance,Urine Clear (Clear); Bilirubin,Urine Negative (Negative); Blood,Urine Negative (Negative); Color,Urine Colorless; Glucose,Urine (UA) Negative (Negative); Ketones,Urine Negative (Negative); Leukocyte Esterase,Urine Negative (Negative); Nitrite,Urine Negative (Negative); PH, Urine 5.5 (5.0-8.0); Protein,Urine Negative (Negative); Urobilinogen,Urine <2.0 mg/dL (<2.0)
[2021-01-19] MEDS: CEFEPIME 2 GM in SODIUM CHLORIDE 0.9% 100 ML IVPB SCH ×2 (17:14→23:20)
[2021-01-19] MEDS ORDERED: ZOLPIDEM 5 MG TAB PO PRN (19:08)
[2021-01-19] MEDS: DOXAZOSIN 4 MG TAB PO SCH (20:24)
[2021-01-20] MEDS: IPRATROPIUM-ALBUTEROL 3 ML NEB INHALATION PRN ×2 (05:42→12:45)
[2021-01-20] MEDS: PANTOPRAZOLE 40 MG TABLET PO SCH (06:33)
[2021-01-20 07:51] LABS: Basophils % (A) 0 %; Eosinophils # (A) 0.2 k/uL (0-0.7); Eosinophils % (A) 3 %; HCT 30.6 % (39.0-53.0); HGB 10.1 gm/dL (13.0-17.5); Lymphocytes % (A) 13 %; MCH 31.7 pg (25.0-35.0); Mean Platelet Volume 6.9; Monocytes # (A) 0.5 k/uL (0-1.0); Monocytes % (A) 7 %; Neutrophils # (A) 5.7 k/uL (1.3-7.7); Neutrophils % (A) 76 %; Platelet Count 248 k/uL (150-450); RBC 3.19 m/uL (4.30-5.90); RDW 13.6 % (11.5-15.5); WBC 7.5 k/uL (3.8-10.6)
--- NOTE | 2021-01-20 08:13 | PN ---
PROGRESS NOTE A 75-year-old white male with some mild memory loss, metabolic encephalopathy. He feels better. He is waiting for urine culture to come back prior to being discharged home. He remains on cefepime for UTI. Ruled out for any infection and is status post TAVR. Cardiovascular S1-S2. Lungs clear. GI soft. Hematology negative Homans. ASSESSMENT: 1. Urinary tract infection. 2. Systemic inflammatory response syndrome. 3. Hypertension. 4. GERD. 5. Dementia. PLAN: Continue with IV antibiotics. Wait for urine culture prior to discharge. Continue current medications. MMODL / IJN: [id number] /
[2021-01-20 08:17] LABS: African American GFR (CKD) >90 (>60 ml/min/1.73 sqM); Anion Gap 5 mmol/L; Blood Urea Nitrogen 10 mg/dL (9-20); Calcium 8.5 mg/dL (8.4-10.2); Carbon Dioxide 28 mmol/L (22-30); Chloride 103 mmol/L (98-107); Glucose 92 mg/dL (74-99); Non-African American GFR(CKD) >90 (>60 ml/min/1.73 sqM); Potassium 3.9 mmol/L (3.5-5.1); Sodium 136 mmol/L (137-145)
[2021-01-20] MEDS: CLOPIDOGREL 75 MG TAB PO SCH (09:48)
[2021-01-20] MEDS: MEMANTINE 10 MG TAB PO SCH (09:48)
[2021-01-20] MEDS: METOPROLOL TARTRATE 25 MG TAB PO SCH (09:48)
[2021-01-20] MEDS: ATORVASTATIN 40 MG TAB PO SCH (09:48)
[2021-01-20] MEDS: ASPIRIN 81 MG PO SCH (09:48)
[2021-01-20] MEDS: CEFEPIME 2 GM in SODIUM CHLORIDE 0.9% 100 ML IVPB SCH (09:49)
[2021-01-20 10:06] VITALS: TEMP 97.6
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
[2021-01-20 12:23] VITALS: BP 145/72; RESP 20
[2021-01-20 12:47] VITALS: PULSE 72
--- NOTE | 2021-01-20 21:19 | DS ---
DISCHARGE SUMMARY DATE OF ADMISSION: 01/17/2021 DATE OF DISCHARGE: 01/20/2021 FINAL DIAGNOSES: 1. Acute UTI with cystitis with cultures positive for Serratia marcescens. 2. 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 3. Permanent pacemaker placement on 01/10/2021 for third-degree heart block. 4. Coronary artery disease. 5. Moderate mitral regurgitation. 6. Chronic nicotine dependence, cigarette smoker. 7. Chronic obstructive pulmonary disease in a current smoker. 8. Cognitive impairment with a history of closed head injury. 9. Primary osteoarthritis. 10.Anxiety. CONSULTATIONS: Dr. Hilliard from Pulmonary. Dr. William from Cardiology. Dr. Adair from ID. HOSPITAL COURSE: This 75-year-old patient with multiple medical problems, presented with weakness and fever. The patient had a TAVR procedure done on 01/09/2021, and had a pacemaker placement on 01/10/2021. Post procedure, developed urinary retention and a Corey catheter was placed and then he readmitted with a fever. Corey catheter was placed again. The patient's urine cultures came back positive for Serratia marcescens, was put on IV cefepime. Blood cultures were negative. Repeat UA from yesterday was negative. Hence, switched over to Ceftin. Today: Care was discussed with the patient and at the bedside. Oral intake good. The patient will be discharged with a Corey catheter, to follow up with Urology. Questions were answered. Discussion and discharge planning more than 35 minutes. PHYSICAL EXAMINATION: Temperature 97.6, pulse 81, respiratory 18, blood pressure 124/49, pulse ox 96% on 2 L. CARDIOVASCULAR: Heart is irregular. PSYCH: Patient is able answer simple questions. LUNGS: Decreased breath sounds. INVESTIGATIONS: White count 7.5, hemoglobin 10.1, potassium 3.9, creatinine 0.68. Urine culture growing Serratia marcescens. 2D echocardiogram EF 50-55 percent, moderate mitral regurgitation. DISCHARGE MEDICATIONS: Doxizosin8 mg p.o. q.h.s., fish oil 1 capsule p.o. b.i.d., Namenda 10 mg b.i.d. Tylenol 650 mg q.4 p.r.n., aspirin 81 mg a day, Lipitor 40 mg a day, Plavix 75 mg a day, Lopressor 25 mg b.i.d., Protonix 40 mg with breakfast, Ceftin 500 mg b.i.d. 14 tablets, Pepcid 20 mg b.i.d., DuoNeb t.i.d. FOLLOWUP: With Liza Rdz on 02/19. Follow up with Jonatan Qureshi in 3 days. Follow up with Dr. Barry in 1 week. Follow up with Dr. oRland on 02/19/2021. MMODL / IJN: [id number] /
--- NOTE | 2021-01-25 16:09 | CDI ---
Documentation Clarification Form Date: 01/25/2021 03:44:37 PM From: Skyla Rouse RN, CCDS Admit Date: 01/17/2021 01:52:00 AM Patient Name: Jax Handley Visit Number: [id number] Discharge Date: 01/20/2021 02:05:00 PM ATTENTION: The Clinical Documentation Specialists (CDI) and [facility] Coding Staff appreciate your assistance in clarifying documentation. Please respond to the clarification below the line at the bottom and electronically sign. The CDI & [facility] Coding staff will review the response and follow-up if needed. Please note: Queries are made part of the Legal Health Record. If you have any questions, please contact the author of this message via ITS. Dr. Ross Lawson UTI is documented in the ED assessment with patient history of urinary retention post Corey catheter removal 01/15/21. Additional clarification regarding this diagnosis is requested. 01/17 ID: Patient present to hospital with sepsis and suspicion of additional fever elevated white count in a patient who recently did have TAVR did have urine retention requiring Corey catheter that has been recently removed now presented to hospital with fever elevated white count and positive UA. History/Risk Factors: Urinary retention, COPD, Clinical Indicators: 75-year-old male on 01/10 developed postoperative urine retention and a Corey catheter was placed. He was seen in outpatient setting by his urologist and Corey catheter was discontinued. He present to hospital for fever and shortness of 01/16 Vital Signs: 132/64 92 22 102.8 93 % RA 01/16 WBC: 16.2 01/16 Urinalysis: Large blood, Ur Leukocyte Esterase large WBC >182 01/17 Urine Culture: Serratia marcescens 01/17 Blood Culture: Negative Treatment Rocephin 1GM IVPB Daily 01/17-01/19 Maxipime 2 GM IVPB Q 8 HRS 01/19-01/20 Cadura 8 MG PO Daily Bladder scans /post void residual Please clarify if there is an additional diagnosis associated with the UTI: [ ] UTI with Sepsis, present on admission [ ] UTI with Sepsis, Catheter associated present on admission [ ] Other, please specify [ ] Unable to determine (Template Last Revised: August 2020) MTDD
--- NOTE | 2021-01-26 12:03 | PN ---
PROGRESS NOTE ADDENDUM: Please add: UTI with sepsis. MMODL / IJN: [id number] /
== END 2021-01-20 14:05 | disposition home or self-care (01) ==
LOC: EC 22:33 → INTOOBSV 01-17 01:52 → 3SCARD 01-17 01:52 → UNDODISIN 01-20 14:05
PROVIDERS: ADMIT Family Medicine; ATTEND Family Medicine
DX: A41.9 Sepsis, unspecified organism (principal); G93.41 Metabolic encephalopathy; N30.90 Cystitis, unspecified without hematuria; I25.10 Atherosclerotic heart disease of native coronary artery without angina pectoris; B96.89 Other specified bacterial agents as the cause of diseases classified elsewhere; F17.210 Nicotine dependence, cigarettes, uncomplicated; J44.9 Chronic obstructive pulmonary disease, unspecified; F41.9 Anxiety disorder, unspecified; M19.91 Primary osteoarthritis, unspecified site; Z87.820 Personal history of traumatic brain injury; D64.9 Anemia, unspecified; R77.8 Other specified abnormalities of plasma proteins; E46 Unspecified protein-calorie malnutrition; Z68.1 Body mass index [BMI] 19.9 or less, adult; K21.9 Gastro-esophageal reflux disease without esophagitis; I10 Essential (primary) hypertension; F03.90 Unspecified dementia, unspecified severity, without behavioral disturbance, psychotic disturbance, mood disturbance, and anxiety; R47.01 Aphasia; I11.0 Hypertensive heart disease with heart failure; I50.9 Heart failure, unspecified; I48.91 Unspecified atrial fibrillation; M19.90 Unspecified osteoarthritis, unspecified site; K44.9 Diaphragmatic hernia without obstruction or gangrene; I08.0 Rheumatic disorders of both mitral and aortic valves; I44.2 Atrioventricular block, complete; N40.1 Benign prostatic hyperplasia with lower urinary tract symptoms; R33.8 Other retention of urine; Z16.19 Resistance to other specified beta lactam antibiotics; Z79.899 Other long term (current) drug therapy; Z79.82 Long term (current) use of aspirin; Z79.02 Long term (current) use of antithrombotics/antiplatelets; Z95.3 Presence of xenogenic heart valve; Z95.0 Presence of cardiac pacemaker; Z96.653 Presence of artificial knee joint, bilateral; Z88.5 Allergy status to narcotic agent; Z80.42 Family history of malignant neoplasm of prostate
CPT/HCPCS: 51702; 96361 ×3; 96366 ×5; 96367 ×2; 96368; 96365; 96375; 99285; 36415 ×2; 94640 ×5; 94760; 93005; 93306; 83880; 80053 ×2; 80048; 82550; 83605; 83735 ×2; 84100; 84484 ×2; 85025 ×3; 85610; 85730; 81003; 81001; 87040 ×2; 87086; 87077; 87186; 84145; 71045; 71046; G0378 ×4; J2930; J0696 ×4; J0692 ×2; J0295; J0131; J1741

== ENCOUNTER → 2021-02-19 | Outpatient (CLI) | payer MEDICARE ==
[2021-02-19 18:52] LABS: Basophils # (A) 0.06 X 10*3/uL (0.00-0.10); Basophils % (A) 0.6 %; Eosinophils # (A) 0.29 X 10*3/uL (0.04-0.35); Eosinophils % (A) 2.8 %; HCT 39.4 % (39.6-50.0); HGB 12.5 g/dL (13.0-17.0); Lymphocytes # (A) 1.58 X 10*3/uL (0.90-5.00); Lymphocytes % (A) 15.4 %; MCHC 31.7 g/dL (32.0-37.0); MCV 94.7 fL (80.0-97.0); Mean Platelet Volume 10.3 fL (9.5-12.2); Monocytes % (A) 7.8 %; Neutrophils % (A) 72.9 %; Platelet Count 249 X 10*3/uL (140-440); RBC 4.16 X 10*6/uL (4.40-5.60); RDW 12.9 % (11.5-14.5); WBC 10.28 X 10*3/uL (4.50-10.00)
[2021-02-20 00:57] LABS: African American GFR (CKD) 76.2 (60.0-200.0); Anion Gap 12.2 mmol/L (4.00-12.00); BUN/Creat Ratio 14.55 Ratio (12.00-20.00); Calcium 8.9 mg/dL (8.7-10.3); Carbon Dioxide 23.8 mmol/L (21.6-31.8); Non-African American GFR(CKD) 65.8 (60.0-200.0); Potassium 4.7 mmol/L (3.5-5.5)
== END | disposition home or self-care (01) ==
LOC: LABWHC1 12:31
PROVIDERS: ATTEND Thoracic Surgery (Cardiothoracic Vascular Surgery)
DX: I35.1 Nonrheumatic aortic (valve) insufficiency (principal)
CPT/HCPCS: 36415; 80048; 85025

== ENCOUNTER → 2022-02-05 | Outpatient (CLI) | payer MEDICARE ==
[2022-02-05 17:48] LABS: Basophils # (A) 0.05 X 10*3/uL (0.00-0.10); Basophils % (A) 0.6 %; Eosinophils % (A) 1.2 %; HCT 35.8 % (39.6-50.0); HGB 11.7 g/dL (13.0-17.0); Immature Grans, Automated 0.5 %; Lymphocytes # (A) 1.92 X 10*3/uL (0.90-5.00); Lymphocytes % (A) 23.5 %; MCHC 32.7 g/dL (32.0-37.0); MCV 91.8 fL (80.0-97.0); Mean Platelet Volume 10.3 fL (9.5-12.2); Monocytes # (A) 0.59 X 10*3/uL (0.20-1.00); Monocytes % (A) 7.2 %; NRBC Per 100 WBC 0 /100 WBCS (0.0-0.0); Neutrophils # (A) 5.47 X 10*3/uL (1.80-7.70); Platelet Count 226 X 10*3/uL (140-440); RDW 14.1 % (11.5-14.5); WBC 8.17 X 10*3/uL (4.50-10.00)
--- NOTE | 2022-02-06 08:27 | CA ---
Transthoracic Echo Report Name: Jax Handley Age: 77 Gender: M : 1945 Exam Date: 02/05/2022 13:54 Exam Location: [facility] Ht (in): 70 Wt (lb): 185 Ordering Physician: Bharath Almeida MD Attending/Referring Phys: Bharath Almeida MD Land Department Head Brunilda Lawrence, [facility] Procedure CPT: Indications: I35.1 AORTIC VALVE INSUFFICIENCY Cardiac Hx: Technical Quality: Fair Contrast 1: Total Dose (mL): Contrast 2: Total Dose (mL): MEASUREMENTS (Male / Female) Normal Values 2D ECHO LV Diastolic Diameter PLAX 4.4 cm 4.2 - 5.9 / 3.9 - 5.3 cm LV Systolic Diameter PLAX 3.0 cm IVS Diastolic Thickness 1.5 cm 0.6 - 1.0 / 0.6 - 0.9 cm LVPW Diastolic Thickness 1.5 cm 0.6 - 1.0 / 0.6 - 0.9 cm LV Relative Wall Thickness 0.7 LA Volume 60.2 cm??? 18 - 58 / 22 - 52 cm??? DOPPLER AV Peak Velocity 183.4 cm/s AV Peak Gradient 13.5 mmHg AV Mean Velocity 120.9 cm/s AV Mean Gradient 7.0 mmHg AV Velocity Time Integral 35.1 cm AI Peak Velocity 383.4 cm/s AI Peak Gradient 58.8 mmHg AI Pressure Half Time 644.1 ms MV Area PHT 2.7 cm??? Mitral E Point Velocity 40.5 cm/s Mitral A Point Velocity 91.1 cm/s Mitral E to A Ratio 0.4 MV Deceleration Time 277.4 ms FINDINGS Left Ventricle Moderately increased left ventricular wall thickness. Normal left ventricular systolic function with no obvious regional wall motion abnormalities. Left ventricular ejection fraction is estimated at 55 %. Right Ventricle Normal right ventricular size and function. Right ventricular systolic pressure within normal limits. Right Atrium Normal right atrial size. Left Atrium Mildly increased left atrial volume. Mildly increased left atrial area. Mitral Valve Mild mitral annular calcification. Mild mitral regurgitation. Aortic Valve Normally functioning bioprosthetic aortic valve without stenosis with a peak velocity of 1.8 m/s, peak gradient 14 mmHg, mean gradient 7 mmHg. Mild aortic regurgitation. Tricuspid Valve Mild tricuspid regurgitation. Pulmonic Valve Trace pulmonic regurgitation. Pericardium No pericardial effusion. Aorta Normal size aortic root and proximal ascending aorta. CONCLUSIONS Normal LV systolic function Normal functioning bioprosthetic valve in aortic position with mild aortic regurgitation Previewed by: Dr. Armin Dumont MD (Electronically Signed) Final Date: 06 February 2022 08:26
== END | disposition home or self-care (01) ==
LOC: RADECHMAIN 13:21
PROVIDERS: ATTEND Thoracic Surgery (Cardiothoracic Vascular Surgery)
DX: I08.1 Rheumatic disorders of both mitral and tricuspid valves (principal)
CPT/HCPCS: 85025; 93306

== ENCOUNTER → 2023-08-28 | Outpatient (CLI) | payer MEDICARE ==
[2023-08-28 13:19] LABS: African American GFR (CKD) >90 (>60 ml/min/1.73 sqM); Blood Urea Nitrogen 33 mg/dL (9-20); Non-African American GFR(CKD) >90 (>60 ml/min/1.73 sqM)
--- NOTE | 2023-08-30 20:11 | CT ---
EXAMINATION TYPE: CT urogram wo/w con DATE OF EXAM: 08/28/2023 COMPARISON: None HISTORY: 78-year-old male R31.1, benign essential microscopic hematuria TECHNIQUE: Contiguous axial scanning of the abdomen and pelvis performed without and with IV Contrast , patient injected with 100 mL of Isovue 370. Delayed images through the kidneys and bladder were obt ained. Coronal/sagittal reconstructions performed. Reconstructions generated on a dedicated [employer] workstation. CT DLP: 1541.1 mGycm Automated exposure control for dose reduction was used. FINDINGS: Pacer leads are noted. Three-vessel coronary artery calcifications. Endovascular aortic valve replace ment. Heart mildly enlarged without pericardial effusion. Mild emphysematous change in the visualized lower lungs. Partially visualized 7 mm posterior right lower lobe pulmonary nodule unchanged from 12/27/2020. Some calcified granulomas in the periphery of the left base are also unchanged. Some patchy p robable atelectasis left base. Redemonstrated moderate to large hiatal hernia containing approximately half the stomach in the lower chest. Stable 1.6 cm cyst at the left hepatic dome. Tiny 6 mm hypodensity inferior right liver lobe is too s mall for accurate characterization. Probably a tiny cyst as well. Portal venous system is patent. No biliary ductal dilatation. No abnormal gallbladder distention. A couple gallstones measuring up to 1.5 cm are present. Mild diffuse thickening of the left adrenal gland without discrete nodularity. Right adrenal gland and pancreas within normal limits. Calcified granulomas in the spleen redemonstrated. Kidneys show no nephrolithiasis or hydronephrosis. Tiny 9 mm hypodensity anterior mid right kidney cortex too small for accurate CT characterization, pr obable tiny cyst. No suspicious renal mass. Additional 7 mm hypodensity anterior mid left kidney also likely a tiny cyst. Symmetric uptake and excretion of contrast from both kidneys. No abnormal fillin g defects seen within the renal collecting systems. No abnormality identified along the course of eit her ureter. No dilated small bowel, free fluid, or free air. No mesenteric or retroperitoneal lymphadenopathy. Moderate stool in the right side of the colon. Left-sided colonic diverticulosis. No pericolonic infl ammatory change. Moderate atherosclerotic calcifications throughout the abdominal aorta with fusiform infrarenal abdom inal aortic aneurysm up to 4.0 cm previously measuring 3.2 cm in 2020. Moderate circumferential bladder wall thickening. There is a large median lobe of the prostate gland extending into the base of the bladder. Prostate gland measures 4.5 cm wide. A right posterior bladde r wall diverticulum measures 6.2 cm versus 5.6 cm, previously. On the delayed scan, possible 1.8 cm m ural based filling defect right posterior bladder wall. Otherwise, no abnormal fluid collection in the pelvis or pelvic lymphadenopathy. Bones: Degenerative changes left greater than right SI joints. Moderately advanced spondylotic change s throughout the lumbar spine. IMPRESSION: 1. NO NEPHROLITHIASIS OR HYDRONEPHROSIS. 2. TINY CORTICAL HYPODENSITY, MEASURING 9 MM ON THE RIGHT AND 7 MM ON THE LEFT, ARE TOO SMALL FOR ACC URATE CT CHARACTERIZATION, LIKELY TINY CORTICAL CYSTS. NO SUSPICIOUS RENAL MASS OR COLLECTING SYSTEM LESION IS SEEN. 3. ON THE DELAYED SCAN, POSSIBLE 1.8 CM INTRALUMINAL FILLING DEFECT RIGHT POSTERIOR BLADDER WALL. COR RELATE WITH URINE CYTOLOGY AND DIRECT VISUALIZATION TO EXCLUDE NEOPLASM. 4. THERE IS ALSO MARKED MEDIAN LOBE HYPERTROPHY OF THE PROSTATE GLAND EXTENDING INTO THE BASE OF THE BLADDER. CORRELATE FOR SYMPTOMS OF BPH. RIGHT POSTERIOR BLADDER WALL DIVERTICULUM IS LARGER AT 6.2 CM VERSUS 5.6 CM, PREVIOUSLY. 5. MODERATE CIRCUMFERENTIAL BLADDER WALL THICKENING LIKELY CHRONIC BLADDER WALL HYPERTROPHY. 6. INFRARENAL AAA INCREASED FROM 3.2 CM BACK IN 202 NOW MEASURING 4.0 CM. CONSIDER VASCULAR SURGERY FOLLOW-UP/SURVEILLANCE. 7. INCIDENTAL: MODERATE TO LARGE HIATAL HERNIA, CHOLELITHIASIS, EVIDENCE OF PRIOR GRANULOMATOUS DISEA SE, AND LEFT-SIDED COLONIC DIVERTICULOSIS.
== END | disposition home or self-care (01) ==
LOC: RADCTMAIN 12:44
PROVIDERS: ATTEND Urology
DX: I71.43 Infrarenal abdominal aortic aneurysm, without rupture (principal); N28.89 Other specified disorders of kidney and ureter; R31.1 Benign essential microscopic hematuria; N32.89 Other specified disorders of bladder; N40.0 Benign prostatic hyperplasia without lower urinary tract symptoms
CPT/HCPCS: 82565; 84520; 74178; 36415; 74400; Q9967